=== PATIENT | female | born 1995 | race Caucasian/White ===

== ENCOUNTER 2020-09-17 18:57 | Emergency (ER) | payer BC ==
--- NOTE | 2020-09-17 20:10 | EDM.PDOC ---
ED HPI GENERAL MEDICAL PROBLEM - General Chief Complaint: Abdominal Pain Stated Complaint: ABDOMINAL PAIN Time Seen by Provider: 09/17/20 19:18 Source of Information: Reports: Patient, RN Notes Reviewed History Limitations: Reports: No Limitations - History of Present Illness INITIAL COMMENTS - FREE TEXT/NARRATIVE: Patient presents to the emergency department with complaints of generalized abdominal pain for the last 4 days. She states the symptoms initially began in her low abdomen, however at this time she is having pain and tenderness throughout. She states she has a history of "stomach problems ". When asked to elaborate, she states that certain foods make her constipated but that she normally does quite well if she avoids all foods. She has been having regular bowel movements. States last bowel movement was today, however it was quite painful for her to go. She denies any nausea, vomiting, diarrhea, fever, or chills. She has never had any abdominal surgeries. Abdominal Pain Score (Numeric/FACES): 8 - Related Data Allergies Allergy/AdvReac Type Severity Reaction Status Date / Time No Known Allergies Allergy Verified 09/17/20 19:15 Home Meds: Home Meds . [No Known Home Meds] 09/17/20 [History] Past Medical History - Past Health History Medical/Surgical History: Denies Medical/Surgical History - Infectious Disease History Infectious Disease History: Reports: Novel Coronavirus Social & Family History - Tobacco Use Tobacco Use Status *Q: Light Tobacco User Years of Tobacco use: 4 Packs/Tins Daily: 0.2 - Caffeine Use Caffeine Use: Reports: Coffee, Energy Drinks, Soda, Tea - Alcohol Use Days Per Week of Alcohol Use: 1 Number of Drinks Per Day: 1 Total Drinks Per Week: 1 - Recreational Drug Use Recreational Drug Use: No ED ROS GENERAL - Review of Systems Review Of Systems: See Below Constitutional: Reports: No Symptoms. Denies: Fever, Chills, Weakness HEENT: Reports: No Symptoms Respiratory: Reports: No Symptoms Cardiovascular: Reports: No Symptoms Endocrine: Reports: No Symptoms GI/Abdominal: Reports: Abdominal Pain (Mild generalized ), Diarrhea, Nausea, Vomiting : Reports: No Symptoms Musculoskeletal: Reports: No Symptoms Skin: Reports: No Symptoms Neurological: Reports: No Symptoms Psychiatric: Reports: No Symptoms Hematologic/Lymphatic: Reports: No Symptoms Immunologic: Reports: No Symptoms ED EXAM, GI/ABD - Physical Exam Exam: See Below General Appearance: Alert, WD/WN, No Apparent Distress Respiratory/Chest: No Respiratory Distress, Lungs Clear, Normal Breath Sounds, No Accessory Muscle Use, Chest Non-Tender Cardiovascular: Normal Peripheral Pulses, Regular Rate, Rhythm, No Edema, No Gallop, No JVD, No Murmur, No Rub GI/Abdominal Exam: Normal Bowel Sounds, Soft, No Organomegaly, No Distention, No Abnormal Bruit, No Mass, Pelvis Stable, Tender (Mild generalized tenderness throughout) Neurological: Alert, Oriented, CN II-XII Intact, Normal Cognition, Normal Gait, Normal Reflexes, No Motor/Sensory Deficits Psychiatric: Normal Affect, Normal Mood Skin Exam: Warm, Dry, Intact, Normal Color, No Rash Course - Vital Signs Last Recorded V/S: Last Vital Signs Temp 97.0 F 09/17/20 19:13 Pulse 76 09/17/20 19:13 Resp 15 09/17/20 19:13 BP 150/86 H 09/17/20 19:13 Pulse Ox 100 09/17/20 19:13 - Orders/Labs/Meds Orders: Active Orders 24 hr Category Date Time Status Abdomen 2V AP Flat Upright [CR] Stat Exams 09/17/20 19:24 Taken Meds: Medications Discontinued Medications Generic Name Dose Route Start Last Admin Trade Name Freq PRN Reason Stop Dose Admin Magnesium Citrate 296 ml 09/17/20 20:30 09/17/20 20:47 Citrate Of Magnesia PO 09/17/20 20:31 296 ml ONETIME ONE Administration - Re-Assessments/Exams Free Text/Narrative Re-Assessment/Exam: Patient is a 25-year-old female presenting to the emergency department with a 4- day history of generalized abdominal pain. States initially began in her lower abdomen it is currently throughout. On exam, she does have some mild tenderness throughout her entire abdomen. She is had no fever, chills, nausea, vomiting, or diarrhea. Given her history, I feel that it is likely that she is constipated. Have ordered abdomen flat and upright x-ray. 09/17/20 20:09 X-ray of the abdomen shows a significant amount of stool throughout the ascending, transverse, and descending colon's. Discussed these findings with the patient. We will send her home with a bottle of magnesium citrate. Discharge instructions as documented. Departure - Departure Time of Disposition: 20:49 Disposition: Home, Self-Care 01 Condition: Good Clinical Impression: Constipation Qualifiers: Constipation type: unspecified constipation type Qualified Code(s): K59.00 - Constipation, unspecified - Discharge Information Instructions: Constipation, Adult Referrals: PCP,None [Primary Care Provider] - Forms: ED Department Discharge Additional Instructions: You were seen in the emergency department today for generalized abdominal pain over the last 4 days. Abdominal x-rays were completed and do show increased stool throughout your colon which is likely the cause of your pain. You have been sent home with a bottle of magnesium citrate. Recommend that you drink the entire bottle upon return home. This should produce a number of bowel movements, some of which may be loose. Once you have cleaned out, I would recommend that you start taking a daily stool softener to help you stay regular. These may be purchased [id number]. Return to ER as needed. Sepsis Event Note (ED) - Evaluation Sepsis Screening Result: No Definite Risk - Focused Exam Vital Signs: Vital Signs Temp Pulse Resp BP Pulse Ox 09/17/20 19:13 97.0 F 76 15 150/86 H 100 - My Orders Last 24 Hours: My Active Orders 09/17/20 19:24 Abdomen 2V AP Flat Upright [CR] Stat - Assessment/Plan Last 24 Hours: My Active Orders 09/17/20 19:24 Abdomen 2V AP Flat Upright [CR] Stat
[2020-09-17] MEDS ORDERED: Magnesium Citrate Solution 296 ML Bottle PO ONE (20:30)
--- NOTE | 2020-09-20 08:39 | CR ---
PROCEDURE INFORMATION: Exam: XR Abdomen, 3 or More Views Exam date and time: 09/17/2020 7:45 PM Age: 25 years old Clinical indication: Abdominal pain; Patient HX: LLQ pain onset Sunday and worsening, denies n/v/d TECHNIQUE: Imaging protocol: XR of the abdomen. Views: 3 or more views. COMPARISON: No relevant prior studies available. FINDINGS: Gastrointestinal tract: Gas and stool are present in the colon. No dilated bowel loops. Intraperitoneal space: Normal. No free air. Bones/joints: Unremarkable for age. IMPRESSION: No acute findings. Thank you for allowing us to participate in the care of your patient. Dictated and Authenticated by: Martinez Lobo MD 09/17/2020 9:47 PM Central Time ([place] & [place]) [facility]
== END 2020-09-17 20:59 | disposition home or self-care (01) ==
LOC: JD.ED 18:57
DX: K59.00 Constipation, unspecified (principal); F17.210 Nicotine dependence, cigarettes, uncomplicated; Z86.19 Personal history of other infectious and parasitic diseases
CPT/HCPCS: 74019; 99284; A9270; 99283

== ENCOUNTER 2020-09-19 17:37 | Day surgery (SDC) | payer BC ==
[2020-09-19] MEDS ORDERED: Sodium Chloride 0.9% 10 ML Syringe FLUSH PRN (18:39)
--- NOTE | 2020-09-19 19:21 | EDM.PDOC ---
ED HPI GENERAL MEDICAL PROBLEM - General Chief Complaint: Abdominal Pain Stated Complaint: ABDOMINAL PAIN/CONSTIPATED Time Seen by Provider: 09/19/20 17:43 Source of Information: Reports: Patient, RN Notes Reviewed History Limitations: Reports: No Limitations - History of Present Illness INITIAL COMMENTS - FREE TEXT/NARRATIVE: Patient is a 25-year-old female presenting to the emergency department with complaints of abdominal discomfort and distention. She was seen in this emergency department 2 days ago and was found increase stool in her colon. She states she went home and drink the magnesium citrate. She did have a number of loose stools, however today she felt quite bloated and continued to have some generalized abdominal discomfort. She took another bottle of magnesium citrate and states that she has been having watery diarrhea since that time. She is passing gas as well. She denies any fever, nausea, or vomiting. She has a history of constipation. She has had no abdominal surgeries in the past. Abdominal Pain Score (Numeric/FACES): 8 - Related Data Allergies Allergy/AdvReac Type Severity Reaction Status Date / Time No Known Allergies Allergy Verified 09/19/20 17:46 Home Meds: Home Meds . [No Known Home Meds] 09/17/20 [History] Past Medical History - Past Health History Medical/Surgical History: Denies Medical/Surgical History - Infectious Disease History Infectious Disease History: Reports: Novel Coronavirus Social & Family History - Tobacco Use Tobacco Use Status *Q: Current Every Day Tobacco User Years of Tobacco use: 4 Packs/Tins Daily: 0.2 - Caffeine Use Caffeine Use: Reports: Coffee, Energy Drinks, Soda - Recreational Drug Use Recreational Drug Use: No ED ROS GENERAL - Review of Systems Review Of Systems: See Below Constitutional: Reports: No Symptoms. Denies: Fever, Chills HEENT: Reports: No Symptoms Respiratory: Reports: No Symptoms Cardiovascular: Reports: No Symptoms Endocrine: Reports: No Symptoms GI/Abdominal: Reports: Abdominal Pain (mild generalized throughout). Denies: Nausea, Vomiting : Reports: No Symptoms Musculoskeletal: Reports: No Symptoms Skin: Reports: No Symptoms Neurological: Reports: No Symptoms Psychiatric: Reports: No Symptoms Hematologic/Lymphatic: Reports: No Symptoms Immunologic: Reports: No Symptoms ED EXAM, GI/ABD - Physical Exam Exam: See Below General Appearance: Alert, WD/WN, No Apparent Distress Respiratory/Chest: No Respiratory Distress, Lungs Clear, Normal Breath Sounds, No Accessory Muscle Use, Chest Non-Tender Cardiovascular: Normal Peripheral Pulses, Regular Rate, Rhythm, No Edema, No Gallop, No JVD, No Murmur, No Rub GI/Abdominal Exam: Soft, No Organomegaly, No Distention, No Abnormal Bruit, No Mass, Pelvis Stable, Tender (generalized tenderness throughout), Other (hyperactive bowel sounds x 4). No: Guarding, Rigid, Rebound Neurological: Alert, Oriented, CN II-XII Intact, Normal Cognition, Normal Gait, Normal Reflexes, No Motor/Sensory Deficits Psychiatric: Normal Affect, Normal Mood Skin Exam: Warm, Dry, Intact, Normal Color, No Rash Lymphatic: No Adenopathy Course - Vital Signs Last Recorded V/S: Last Vital Signs Temp 98.8 F 09/20/20 07:48 Pulse 84 09/20/20 07:48 Resp 16 09/20/20 07:48 BP 114/58 L 09/20/20 07:48 Pulse Ox 100 09/20/20 07:48 - Orders/Labs/Meds Orders: Active Orders 24 hr Category Date Time Status Admission Status [Patient Status] [ADT] Routine ADT 09/19/20 22:46 Active Ambulate [RC] PER UNIT ROUTINE Care 09/20/20 01:50 Active Antiembolic Devices [RC] PER UNIT ROUTINE Care 09/19/20 23:26 Active Communication Order [RC] ASDIRECTED Care 09/20/20 00:12 Active Communication Order [RC] ASDIRECTED Care 09/20/20 01:50 Active Oxygen Therapy [RC] ASDIRECTED Care 09/20/20 00:12 Active Peripheral IV Care [RC] Q2HR Care 09/19/20 18:39 Active Pulse Oximetry [RC] ASDIRECTED Care 09/20/20 00:12 Active Vital Signs [RC] Q4HR Care 09/20/20 00:12 Active Nothing Per Oral Diet [DIET] Diet 09/19/20 Dinner Active Regular Diet [DIET] Diet 09/20/20 Breakfast Active Acetaminophen [TylenoL] Med 09/20/20 01:50 Active 650 mg PO Q6H PRN Acetaminophen/oxyCODONE [Percocet 325-5 MG] Med 09/20/20 01:50 Active 1 tab PO Q6H PRN Acetaminophen/oxyCODONE [Percocet 325-5 MG] Med 09/20/20 01:50 Active 2 tab PO Q6H PRN HYDROmorphone [Dilaudid] Med 09/20/20 00:12 Active 0.5 mg IVPUSH Q10M PRN Ibuprofen [Motrin] Med 09/20/20 01:50 Active 600 mg PO Q6H PRN Ondansetron [Zofran] Med 09/20/20 00:12 Active 4 mg IVPUSH ONETIME PRN Ondansetron [Zofran] Med 09/20/20 08:04 Active 4 mg IVPUSH Q4H PRN Sodium Chloride 0.9% [Normal Saline] 100 ml Med 09/19/20 21:30 Active IV ASDIRECTED Sodium Chloride 0.9% [Saline Flush] Med 09/19/20 18:39 Active 10 ml FLUSH ASDIRECTED PRN fentaNYL [Sublimaze] Med 09/20/20 00:12 Active 50 mcg IVPUSH Q5M PRN Peripheral IV Insertion Adult [OM.PC] Stat Oth 09/19/20 18:39 Ordered Schedule Procedure [COMM] Stat Oth 09/19/20 22:46 Ordered Sequential Compression Device [OM.PC] Per Unit Routine Oth 09/19/20 23:24 Ordered Medication Orders Acetaminophen (Tylenol) 650 mg PO Q6H PRN PRN Reason: Pain Fentanyl (Sublimaze) 50 mcg IVPUSH Q5M PRN PRN Reason: Pain Hydromorphone HCl (Dilaudid) 0.5 mg IVPUSH Q10M PRN PRN Reason: Pain (severe 7-10) Sodium Chloride (Normal Saline) 100 mls @ 60 mls/hr IV ASDIRECTED AURELIA Last Admin: 09/19/20 21:25 Dose: 60 mls/hr Documented by: [email or web address] Ibuprofen (Motrin) 600 mg PO Q6H PRN PRN Reason: Pain Last Admin: 09/20/20 06:50 Dose: 600 mg Documented by: [email or web address] Ondansetron HCl (Zofran) 4 mg IVPUSH ONETIME PRN PRN Reason: Nausea/Vomiting Ondansetron HCl (Zofran) 4 mg IVPUSH Q4H PRN PRN Reason: NAUSEA Oxycodone/Acetaminophen (Percocet 325-5 Mg) 1 tab PO Q6H PRN PRN Reason: Abdominal Pain Last Admin: 09/20/20 02:08 Dose: 1 tab Documented by: [email or web address] Oxycodone/Acetaminophen (Percocet 325-5 Mg) 2 tab PO Q6H PRN PRN Reason: Pain (severe 7-10) Sodium Chloride (Saline Flush) 10 ml FLUSH ASDIRECTED PRN PRN Reason: Keep Vein Open Last Admin: 09/19/20 21:05 Dose: 10 ml Documented by: BETH Labs: Laboratory Tests 09/19/20 09/19/20 09/19/20 Range/Units 19:55 19:55 19:55 WBC 4.99 (3.98-10.04) K/mm3 RBC 3.57 L (3.98-5.22) M/mm3 Hgb 10.7 L (11.2-15.7) gm/dl Hct 33.6 L (34.1-44.9) % MCV 94.1 (79.4-94.8) fl MCH 30.0 (25.6-32.2) pg MCHC 31.8 L (32.2-35.5) g/dl RDW Std Deviation 42.7 (36.4-46.3) fL Plt Count 225 (182-369) K/mm3 MPV 10.7 (9.4-12.3) fl Neut % (Auto) 61.3 (34.0-71.1) % Lymph % (Auto) 26.9 (19.3-51.7) % [place]urry % (Auto) 10.4 (4.7-12.5) % Eos % (Auto) 1.0 (0.7-5.8) Baso % (Auto) 0.2 (0.1-1.2) % Neut # (Auto) 3.06 (1.56-6.13) K/mm3 Lymph # (Auto) 1.34 (1.18-3.74) K/mm3 [place] # (Auto) 0.52 H (0.24-0.36) K/mm3 Eos # (Auto) 0.05 (0.04-0.36) K/mm3 Baso # (Auto) 0.01 (0.01-0.08) K/mm3 Sodium 138 (136-145) mEq/L Potassium 3.8 (3.5-5.1) mEq/L Chloride 101 (98-107) mEq/L Carbon Dioxide 29 (21-32) mEq/L Anion Gap 11.8 (5-15) BUN 7 (7-18) mg/dL Creatinine 1.0 (0.55-1.02) mg/dL Est Cr Clr Drug Dosing 75.55 mL/min Estimated GFR (MDRD) > 60 (>60) mL/min BUN/Creatinine Ratio 7.0 L (14-18) Glucose 83 (74-106) mg/dL Calcium 9.0 (8.5-10.1) mg/dL Total Bilirubin 0.7 (0.2-1.0) mg/dL AST 18 (15-37) U/L ALT 20 (14-59) U/L Alkaline Phosphatase 55 (46-116) U/L C-Reactive Protein 1.3 H* (<1.0) mg/dL Total Protein 6.7 (6.4-8.2) g/dl Albumin 3.7 (3.4-5.0) g/dl Globulin 3.0 gm/dL Albumin/Globulin Ratio 1.2 (1-2) Lipase 105 (73-393) U/L HCG, Qual Positive H (NEGATIVE) HCG, Quant mIU/mL SARS-CoV-2 RNA (ANAHI) (NEGATIVE) SARS CoV-2 RNA Rapid ANAHI (NEGATIVE) Blood Type Gel Antibody Screen 09/19/20 09/19/20 09/19/20 Range/Units 19:55 19:55 22:40 WBC (3.98-10.04) K/mm3 RBC (3.98-5.22) M/mm3 Hgb (11.2-15.7) gm/dl Hct (34.1-44.9) % MCV (79.4-94.8) fl MCH (25.6-32.2) pg MCHC (32.2-35.5) g/dl RDW Std Deviation (36.4-46.3) fL Plt Count (182-369) K/mm3 MPV (9.4-12.3) fl Neut % (Auto) (34.0-71.1) % Lymph % (Auto) (19.3-51.7) % [place]urry % (Auto) (4.7-12.5) % Eos % (Auto) (0.7-5.8) Baso % (Auto) (0.1-1.2) % Neut # (Auto) (1.56-6.13) K/mm3 Lymph # (Auto) (1.18-3.74) K/mm3 [place] # (Auto) (0.24-0.36) K/mm3 Eos # (Auto) (0.04-0.36) K/mm3 Baso # (Auto) (0.01-0.08) K/mm3 Sodium (136-145) mEq/L Potassium (3.5-5.1) mEq/L Chloride (98-107) mEq/L Carbon Dioxide (21-32) mEq/L Anion Gap (5-15) BUN (7-18) mg/dL Creatinine (0.55-1.02) mg/dL Est Cr Clr Drug Dosing mL/min Estimated GFR (MDRD) (>60) mL/min BUN/Creatinine Ratio (14-18) Glucose (74-106) mg/dL Calcium (8.5-10.1) mg/dL Total Bilirubin (0.2-1.0) mg/dL AST (15-37) U/L ALT (14-59) U/L Alkaline Phosphatase (46-116) U/L C-Reactive Protein (<1.0) mg/dL Total Protein (6.4-8.2) g/dl Albumin (3.4-5.0) g/dl Globulin gm/dL Albumin/Globulin Ratio (1-2) Lipase (73-393) U/L HCG, Qual (NEGATIVE) HCG, Quant 829.0 mIU/mL SARS-CoV-2 RNA (ANHAI) Negative (NEGATIVE) SARS CoV-2 RNA Rapid ANAHI (NEGATIVE) Blood Type B POSITIVE Gel Antibody Screen Negative 09/19/20 09/19/20 09/20/20 Range/Units 22:48 23:15 07:27 WBC 5.60 (3.98-10.04) K/mm3 RBC 3.49 L (3.98-5.22) M/mm3 Hgb 10.4 L (11.2-15.7) gm/dl Hct 32.9 L (34.1-44.9) % MCV 94.3 (79.4-94.8) fl MCH 29.8 (25.6-32.2) pg MCHC 31.6 L (32.2-35.5) g/dl RDW Std Deviation 43.0 (36.4-46.3) fL Plt Count 233 (182-369) K/mm3 MPV 10.4 (9.4-12.3) fl Neut % (Auto) 48.3 (34.0-71.1) % Lymph % (Auto) 38.6 (19.3-51.7) % [place] % (Auto) 11.1 (4.7-12.5) % Eos % (Auto) 1.4 (0.7-5.8) Baso % (Auto) 0.4 (0.1-1.2) % Neut # (Auto) 2.71 (1.56-6.13) K/mm3 Lymph # (Auto) 2.16 (1.18-3.74) K/mm3 [place]urry # (Auto) 0.62 H (0.24-0.36) K/mm3 Eos # (Auto) 0.08 (0.04-0.36) K/mm3 Baso # (Auto) 0.02 (0.01-0.08) K/mm3 Sodium (136-145) mEq/L Potassium (3.5-5.1) mEq/L Chloride (98-107) mEq/L Carbon Dioxide (21-32) mEq/L Anion Gap (5-15) BUN (7-18) mg/dL Creatinine (0.55-1.02) mg/dL Est Cr Clr Drug Dosing mL/min Estimated GFR (MDRD) (>60) mL/min BUN/Creatinine Ratio (14-18) Glucose (74-106) mg/dL Calcium (8.5-10.1) mg/dL Total Bilirubin (0.2-1.0) mg/dL AST (15-37) U/L ALT (14-59) U/L Alkaline Phosphatase (46-116) U/L C-Reactive Protein (<1.0) mg/dL Total Protein (6.4-8.2) g/dl Albumin (3.4-5.0) g/dl Globulin gm/dL Albumin/Globulin Ratio (1-2) Lipase (73-393) U/L HCG, Qual (NEGATIVE) HCG, Quant 656.0 mIU/mL SARS-CoV-2 RNA (ANAHI) (NEGATIVE) SARS CoV-2 RNA Rapid ANAHI Negative (NEGATIVE) Blood Type Gel Antibody Screen 09/20/20 Range/Units 07:27 WBC 7.69 (3.98-10.04) K/mm3 RBC 3.59 L (3.98-5.22) M/mm3 Hgb 10.8 L (11.2-15.7) gm/dl Hct 34.0 L (34.1-44.9) % MCV 94.7 (79.4-94.8) fl MCH 30.1 (25.6-32.2) pg MCHC 31.8 L (32.2-35.5) g/dl RDW Std Deviation 43.5 (36.4-46.3) fL Plt Count 224 (182-369) K/mm3 MPV 10.9 (9.4-12.3) fl Neut % (Auto) 90.3 H (34.0-71.1) % Lymph % (Auto) 8.2 L (19.3-51.7) % Scurry % (Auto) 1.2 L (4.7-12.5) % Eos % (Auto) 0 L (0.7-5.8) Baso % (Auto) 0.0 L (0.1-1.2) % Neut # (Auto) 6.95 H (1.56-6.13) K/mm3 Lymph # (Auto) 0.63 L (1.18-3.74) K/mm3 Scurry # (Auto) 0.09 L (0.24-0.36) K/mm3 Eos # (Auto) 0.00 L (0.04-0.36) K/mm3 Baso # (Auto) 0.00 L (0.01-0.08) K/mm3 Sodium (136-145) mEq/L Potassium (3.5-5.1) mEq/L Chloride (98-107) mEq/L Carbon Dioxide (21-32) mEq/L Anion Gap (5-15) BUN (7-18) mg/dL Creatinine (0.55-1.02) mg/dL Est Cr Clr Drug Dosing mL/min Estimated GFR (MDRD) (>60) mL/min BUN/Creatinine Ratio (14-18) Glucose (74-106) mg/dL Calcium (8.5-10.1) mg/dL Total Bilirubin (0.2-1.0) mg/dL AST (15-37) U/L ALT (14-59) U/L Alkaline Phosphatase (46-116) U/L C-Reactive Protein (<1.0) mg/dL Total Protein (6.4-8.2) g/dl Albumin (3.4-5.0) g/dl Globulin gm/dL Albumin/Globulin Ratio (1-2) Lipase (73-393) U/L HCG, Qual (NEGATIVE) HCG, Quant mIU/mL SARS-CoV-2 RNA (ANAHI) (NEGATIVE) SARS CoV-2 RNA Rapid ANAHI (NEGATIVE) Blood Type Gel Antibody Screen Meds: Medications Generic Name Dose Route Start Last Admin Trade Name Freq PRN Reason Stop Dose Admin Acetaminophen 650 mg 09/20/20 01:50 Tylenol PO Q6H PRN Pain Fentanyl 50 mcg 09/20/20 00:12 Sublimaze IVPUSH Q5M PRN Pain Hydromorphone HCl 0.5 mg 09/20/20 00:12 Dilaudid IVPUSH Q10M PRN Pain (severe 7-10) Sodium Chloride 100 mls @ 60 mls/hr 09/19/20 21:30 09/19/20 21:25 Normal Saline IV 60 mls/hr ASDIRECTED AURELIA Administration Ibuprofen 600 mg 09/20/20 01:50 09/20/20 06:50 Motrin PO 600 mg Q6H PRN Administration Pain Ondansetron HCl 4 mg 09/20/20 00:12 Zofran IVPUSH ONETIME PRN Nausea/Vomiting Ondansetron HCl 4 mg 09/20/20 08:04 Zofran IVPUSH Q4H PRN NAUSEA Oxycodone/Acetaminophen 1 tab 09/20/20 01:50 09/20/20 02:08 Percocet 325-5 Mg PO 1 tab Q6H PRN Administration Abdominal Pain Oxycodone/Acetaminophen 2 tab 09/20/20 01:50 Percocet 325-5 Mg PO Q6H PRN Pain (severe 7-10) Sodium Chloride 10 ml 09/19/20 18:39 09/19/20 21:05 Saline Flush FLUSH 10 ml ASDIRECTED PRN Administration Keep Vein Open Discontinued Medications Generic Name Dose Route Start Last Admin Trade Name [place] PRN Reason Stop Dose Admin Bupivacaine HCl Confirm 09/19/20 23:17 09/19/20 23:59 Marcaine 0.5% Administered 09/19/20 23:18 6 ml Dose Administration 30 ml .ROUTE .STK-MED ONE Cefazolin Sodium Confirm 09/19/20 23:04 Ancef Administered 09/19/20 23:05 Dose 2 gm .ROUTE .STK-MED ONE Citric Acid/Sodium Citrate 30 ml 09/19/20 23:23 09/19/20 23:32 Bicitra Solution PO 09/19/20 23:24 30 ml ONETIME ONE Administration Citric Acid/Sodium Citrate Confirm 09/19/20 23:30 09/20/20 02:11 Bicitra Solution Administered 09/19/20 23:31 Not Given Dose 30 ml .ROUTE .STK-MED ONE Dexamethasone Confirm 09/19/20 23:05 Dexamethasone Administered 09/19/20 23:06 Dose 20 mg .ROUTE .STK-MED ONE Fentanyl Confirm 09/19/20 23:04 Sublimaze Administered 09/19/20 23:05 Dose 250 mcg .ROUTE .STK-MED ONE Glycopyrrolate Confirm 09/20/20 00:09 Robinul Administered 09/20/20 00:10 Dose 0.4 mg .ROUTE .STK-MED ONE Lactated Ringer's 1,000 mls @ 999 mls/hr 09/19/20 22:59 09/19/20 23:08 Ringers, Lactated IV 09/19/20 23:59 999 mls/hr .BOLUS ONE Administration Lidocaine HCl Confirm 09/19/20 23:04 Xylocaine-Mpf 1% Administered 09/19/20 23:05 Dose 4 mls @ as directed .ROUTE .STK-MED ONE Lactated Ringer's Confirm 09/19/20 23:04 Ringers, Lactated Administered 09/19/20 23:05 Dose 1,000 mls @ as directed .ROUTE .STK-MED ONE Lidocaine HCl Confirm 09/19/20 23:04 Xylocaine-Mpf 1% Administered 09/19/20 23:05 Dose 4 mls @ as directed .ROUTE .STK-MED ONE Ondansetron HCl 4 mg/ Sodium 52 mls @ 100 mls/hr 09/20/20 01:50 Chloride IV Q4H PRN Nausea Iopamidol 100 ml 09/19/20 21:21 09/19/20 21:25 Isovue-300 (61%) IVPUSH 09/19/20 21:22 100 ml ONETIME ONE Administration Iopamidol 50 ml 09/19/20 21:21 09/19/20 21:25 Isovue-300 (61%) IVPUSH 09/19/20 21:22 50 ml ONETIME ONE Administration Ketorolac Tromethamine Confirm 09/20/20 00:09 Toradol Administered 09/20/20 00:10 Dose 15 mg .ROUTE .STK-MED ONE Midazolam HCl Confirm 09/19/20 23:04 Versed 1 Mg/Ml Administered 09/19/20 23:05 Dose 2 mg .ROUTE .STK-MED ONE Neostigmine Methylsulfate Confirm 09/20/20 00:09 Neostigmine Methylsulfate Administered 09/20/20 00:10 Dose 5 mg .ROUTE .STK-MED ONE Ondansetron HCl Confirm 09/19/20 23:04 Zofran Administered 09/19/20 23:05 Dose 4 mg .ROUTE .STK-MED ONE Ondansetron HCl Confirm 09/19/20 23:05 Zofran Administered 09/19/20 23:06 Dose 4 mg .ROUTE .STK-MED ONE Propofol Confirm 09/19/20 23:04 Diprivan 20 Ml Administered 09/19/20 23:05 Dose 400 mg .ROUTE .STK-MED ONE Rocuronium [place] Confirm 09/19/20 23:04 Zemuron Administered 09/19/20 23:05 Dose 50 mg .ROUTE .STK-MED ONE - Re-Assessments/Exams Free Text/Narrative Re-Assessment/Exam: Patient is a 25-year-old female presenting to the emergency department with complaints of watery stools and abdominal bloating with discomfort. She was seen here 2 days ago and found to have increased stool in her colon. She states she went home and drink the magnesium citrate. She did have some loose stools after this. Today she was feeling distended, therefore she took another bottle of magnesium citrate. She states that she has been having frequent very watery stools. She is also passing gas. She denies any nausea or vomiting. Has had no fevers. I have ordered an abdomen flat and upright x-ray. 09/19/20 1840 X-ray flat and upright shows scattered minimal distended loops of bowel with multiple air-fluid levels. Findings are nonspecific but could relate to an underlying gastroenteritis/ileus. Possibility of early or developing bowel obstruction cannot be excluded. I have ordered blood work and a CT scan of the abdomen pelvis with IV and oral contrast. Pt denies possibility of as she just finished her period on September 07. 09/19/20 22:06 CT scan of the abdomen pelvis shows a moderate amount of high density intraperitoneal fluid suggesting hemoperitoneum. Moderate to large amount of heterogeneous high density pelvic fluid also likely representing complexity/blood products. Etiology uncertain although possible etiology would include ruptured hemorrhagic ovarian cyst. Recommend clinical correlation and pelvic ultrasound to better assess the ovaries/pelvic organs. Correlate with beta hCG values to exclude any possibility of underlying ectopic . No evidence of bowel obstruction. Patient verbalizes that she finished a full period SundaySeptember 07. The discomfort began about 5 days ago. She states that her pain was briefly more in her bilateral lower abdomen, but that it has been generalized abdominal tenderness since. She states that at the onset of symptoms, she did have some light vaginal spotting which she thought was her starting her period again. This was very brief and then stopped. I have ordered a serum hCG as well as a transvaginal non-OB ultrasound. Once these results are available, I will consult with the PUBLIC SAFETY OFFICER on-call. 09/19/20 22:27 Patient serum hCG is positive, raising concern for possible ruptured ectopic . Patient is currently over at ultrasound. Once these results are available, I will visit with the PUBLIC SAFETY OFFICER on-call. 09/19/20 22:48 Visited with the industrial service technician. She noted that there was a large amount of blood within the pelvis. She states there were large cysts in each ovary, therefore she was not able to see which side the blood was coming from. Called and spoke with the PUBLIC SAFETY OFFICER on-call, Dr. Mcconnell. He requested a quantitative hCG be added. I had already ordered a type and screen. He said he will be here in 10 minutes and asked to call in the OR crew. Departure - Departure Time of Disposition: 22:50 Disposition: DC/Tfer to [facility] Condition: Good Clinical Impression: Hemoperitoneum - Discharge Information Sepsis Event Note (ED) - Evaluation Sepsis Screening Result: No Definite Risk - Focused Exam Vital Signs: Vital Signs Temp Temp Pulse Pulse Resp BP BP 09/20/20 07:48 98.8 F 84 16 114/58 L 09/20/20 04:10 98.2 F 88 15 118/58 L 09/20/20 04:00 98.2 F 72 14 118/58 L 09/20/20 02:56 98.2 F 69 14 115/65 09/20/20 02:15 64 15 119/63 09/20/20 01:45 98.4 F 59 L 14 121/58 L 09/20/20 01:40 09/20/20 01:30 98.1 F 59 L 18 111/64 09/20/20 01:15 97.9 F 62 16 112/63 09/20/20 01:11 09/20/20 01:02 09/20/20 01:00 97.9 F 62 12 118/59 L 09/20/20 00:50 97.9 F 68 12 118/69 09/20/20 00:44 97.9 F 74 18 109/62 Pulse Ox Pulse Ox 09/20/20 07:48 100 09/20/20 04:10 97 09/20/20 04:00 96 09/20/20 02:56 98 09/20/20 02:15 98 09/20/20 01:45 98 09/20/20 01:40 98 09/20/20 01:30 95 09/20/20 01:15 97 09/20/20 01:11 100 09/20/20 01:02 100 09/20/20 01:00 100 09/20/20 00:50 100 09/20/20 00:44 100 100 - My Orders Last 24 Hours: My Active Orders 09/19/20 18:39 Peripheral IV Care [RC] Q2HR Sodium Chloride 0.9% [Saline Flush] 10 ml FLUSH ASDIRECTED PRN Peripheral IV Insertion Adult [OM.PC] Stat 09/19/20 21:30 Sodium Chloride 0.9% [Normal Saline] 100 ml IV ASDIRECTED 09/19/20 22:46 Admission Status [Patient Status] [ADT] Routine Schedule Procedure [COMM] Stat - Assessment/Plan Last 24 Hours: My Active Orders 09/19/20 18:39 Peripheral IV Care [RC] Q2HR Sodium Chloride 0.9% [Saline Flush] 10 ml FLUSH ASDIRECTED PRN Peripheral IV Insertion Adult [OM.PC] Stat 09/19/20 21:30 Sodium Chloride 0.9% [Normal Saline] 100 ml IV ASDIRECTED 09/19/20 22:46 Admission Status [Patient Status] [ADT] Routine Schedule Procedure [COMM] Stat
[2020-09-19] MEDS ORDERED: Iopamidol 612 MG/ML 100 ML Bottle IVPUSH ONE (21:21)
[2020-09-19] MEDS ORDERED: Iopamidol 612 MG/ML 50 ML SDV IVPUSH ONE (21:21)
[2020-09-19] MEDS ORDERED: Sodium Chloride 0.9% 100 ML IV SCH (21:30)
[2020-09-19] MEDS ORDERED: Lactated Ringers 1,000 ML IV ONE (22:59)
[2020-09-19] MEDS ORDERED: Lidocaine 1% 4 ML ONE ×2 (23:04)
[2020-09-19] MEDS ORDERED: ceFAZolin 1 GM Vial ONE (23:04)
[2020-09-19] MEDS ORDERED: Rocuronium 50 MG/5 ML Vial ONE (23:04)
[2020-09-19] MEDS ORDERED: Ondansetron 4 MG/2 ML SDV ONE ×2 (23:04→23:05)
[2020-09-19] MEDS ORDERED: Lactated Ringers 1,000 ML ONE (23:04)
[2020-09-19] MEDS ORDERED: fentaNYL 250 MCG/5 ML SDV ONE (23:04)
[2020-09-19] MEDS ORDERED: Midazolam 1 MG/ML 2 ML SDV ONE (23:04)
[2020-09-19] MEDS ORDERED: Propofol 200 MG/20 ML SDV ONE (23:04)
[2020-09-19] MEDS ORDERED: Dexamethasone 4 MG/ML 5 ML MDV ONE (23:05)
[2020-09-19] MEDS ORDERED: Bupivacaine 0.5% 30 ML SDV ONE (23:17)
--- NOTE | 2020-09-19 23:17 | PCM.LDHP ---
L&D History of Present Illness - General Date of Service: 09/19/20 Admit Problem/Dx: Patient Status Order with Admit Dx/Problem 09/19/20 22:46 Admission Status [Patient Status] [ADT] Routine Admission Diagnosis/Problem Admission Diagnosis/Problem Ectopic Source of Information: Patient History Limitations: Reports: No Limitations - History of Present Illness Introduction:: 25-year-old -0-0-0 LMP first day 09/02/2020. Patient seen in the emergency room at [facility] in [place] on 09/17/2020 for abdominal pain thought to be constipation. Patient returned to the emergency room on 09/19/2020 and test was obtained positive quantitative value is pending. Type and Rh pending. Hemoglobin/hematocrit 10.7 33.6. Patient started with abdominal pain on 09/14/2020 generalized but somewhat located in the lower midline. Patient's pain persisted for the past day since then still not able to localize to the left or right side. test is positive the scan obtained on 09/19/2020 revealing impression: #1. There is a moderate amount of high density intraperitoneal fluid suggesting hemoperitoneum. Moderate to large amount of heterogenous high density pelvic fluid also likely representing complexity/blood products. Etiology uncertain although possible etiologies would include ruptured hemorrhagic ovarian cyst. Recommend clinical correlation and pelvic ultrasound for better assess one of the ovaries and pelvic organs. Light with beta-hCG values to exclude any possible underlying ectopic . No evidence of bowel obstruction. Ultrasound obtained on 09/19/2020 revealed impression hemorrhagic cyst right ovary. Simple cyst left ovary. No intrauterine gestation. Probable hemoperitoneum. Ectopic gestation requires exclusion. Will plan laparoscopy possible laparotomy possible removal of a tube and ovary. Was obtained with possible complications including bleeding, infection, allergic reaction, bowel, bladder, ureteral damage. Additional surgery. Did have spotting and bleeding after the abdominal pain started on 09/14/2020. Has not been on contraception. Patient has no history of significant abnormalities or problems on no chronic medications. Quality: Reports: Ache, Dull, Pressure, Throbbing Severity: Moderate Pain Score: 8 Improves with: Reports: None Worsens with: Reports: None Associated Symptoms: Reports: N - Related Data Allergies/Adverse Reactions: Allergies Allergy/AdvReac Type Severity Reaction Status Date / Time No Known Allergies Allergy Verified 09/19/20 17:46 Home Medications: Home Meds . [No Known Home Meds] 09/17/20 [History] Past Medical History - Past Health History Medical/Surgical History: Denies Medical/Surgical History - Infectious Disease History Infectious Disease History: Reports: Novel Coronavirus Social & Family History - Tobacco Use Tobacco Use Status *Q: Current Every Day Tobacco User Years of Tobacco use: 4 Packs/Tins Daily: 0.2 - Caffeine Use Caffeine Use: Reports: Coffee, Energy Drinks, Soda - Recreational Drug Use Recreational Drug Use: No H&P Review of Systems - Review of Systems: Review Of Systems: See Below General: Reports: No Symptoms HEENT: Reports: No Symptoms Pulmonary: Reports: No Symptoms Cardiovascular: Reports: No Symptoms Gastrointestinal: Reports: No Symptoms Genitourinary: Reports: No Symptoms Musculoskeletal: Reports: No Symptoms Skin: Reports: No Symptoms Psychiatric: Reports: No Symptoms Neurological: Reports: No Symptoms Hematologic/Lymphatic: Reports: No Symptoms Immunologic: Reports: No Symptoms L&D Exam - Exam Exam: See Below - Vital Signs Vital Signs: Last Vital Signs Temp 97.4 F 09/19/20 17:44 Pulse 92 09/19/20 17:44 Resp 18 09/19/20 17:44 BP 141/71 H 09/19/20 17:44 Pulse Ox 100 09/19/20 17:44 Weight: 170 lb - Exam General: Alert, Oriented HEENT: Conjunctiva Clear, Mucosa Moist & [place], Pupils Equal Neck: Supple, Trachea Midline Lungs: Clear to Auscultation, Normal Respiratory Effort Cardiovascular: Regular Rate, Regular Rhythm GI/Abdominal Exam: Normal Bowel Sounds, Guarding, Tender Genitourinary: Normal external exam Extremities: Normal Inspection, Non-Tender, No Pedal Edema, Normal Capillary Refill Skin: Warm, Dry, Intact Psychiatric: Alert, Normal Affect, Normal Mood - Patient Data Lab Results Last 24 hrs: Laboratory Results - last 24 hr 09/19/20 09/19/20 09/19/20 Range/Units 19:55 19:55 19:55 WBC 4.99 (3.98-10.04) K/mm3 RBC 3.57 L (3.98-5.22) M/mm3 Hgb 10.7 L (11.2-15.7) gm/dl Hct 33.6 L (34.1-44.9) % MCV 94.1 (79.4-94.8) fl MCH 30.0 (25.6-32.2) pg MCHC 31.8 L (32.2-35.5) g/dl RDW Std Deviation 42.7 (36.4-46.3) fL Plt Count 225 (182-369) K/mm3 MPV 10.7 (9.4-12.3) fl Neut % (Auto) 61.3 (34.0-71.1) % Lymph % (Auto) 26.9 (19.3-51.7) % [place] % (Auto) 10.4 (4.7-12.5) % Eos % (Auto) 1.0 (0.7-5.8) Baso % (Auto) 0.2 (0.1-1.2) % Neut # (Auto) 3.06 (1.56-6.13) K/mm3 Lymph # (Auto) 1.34 (1.18-3.74) K/mm3 [place] # (Auto) 0.52 H (0.24-0.36) K/mm3 Eos # (Auto) 0.05 (0.04-0.36) K/mm3 Baso # (Auto) 0.01 (0.01-0.08) K/mm3 Sodium 138 (136-145) mEq/L Potassium 3.8 (3.5-5.1) mEq/L Chloride 101 (98-107) mEq/L Carbon Dioxide 29 (21-32) mEq/L Anion Gap 11.8 (5-15) BUN 7 (7-18) mg/dL Creatinine 1.0 (0.55-1.02) mg/dL Est Cr Clr Drug Dosing 75.55 mL/min Estimated GFR (MDRD) > 60 (>60) mL/min BUN/Creatinine Ratio 7.0 L (14-18) Glucose 83 (74-106) mg/dL Calcium 9.0 (8.5-10.1) mg/dL Total Bilirubin 0.7 (0.2-1.0) mg/dL AST 18 (15-37) U/L ALT 20 (14-59) U/L Alkaline Phosphatase 55 (46-116) U/L C-Reactive Protein 1.3 H* (<1.0) mg/dL Total Protein 6.7 (6.4-8.2) g/dl Albumin 3.7 (3.4-5.0) g/dl Globulin 3.0 gm/dL Albumin/Globulin Ratio 1.2 (1-2) Lipase 105 (73-393) U/L HCG, Qual Positive H (NEGATIVE) HCG, Quant mIU/mL 09/19/20 Range/Units 19:55 WBC (3.98-10.04) K/mm3 RBC (3.98-5.22) M/mm3 Hgb (11.2-15.7) gm/dl Hct (34.1-44.9) % MCV (79.4-94.8) fl MCH (25.6-32.2) pg MCHC (32.2-35.5) g/dl RDW Std Deviation (36.4-46.3) fL Plt Count (182-369) K/mm3 MPV (9.4-12.3) fl Neut % (Auto) (34.0-71.1) % Lymph % (Auto) (19.3-51.7) % [place] % (Auto) (4.7-12.5) % Eos % (Auto) (0.7-5.8) Baso % (Auto) (0.1-1.2) % Neut # (Auto) (1.56-6.13) K/mm3 Lymph # (Auto) (1.18-3.74) K/mm3 [place] # (Auto) (0.24-0.36) K/mm3 Eos # (Auto) (0.04-0.36) K/mm3 Baso # (Auto) (0.01-0.08) K/mm3 Sodium (136-145) mEq/L Potassium (3.5-5.1) mEq/L Chloride (98-107) mEq/L Carbon Dioxide (21-32) mEq/L Anion Gap (5-15) BUN (7-18) mg/dL Creatinine (0.55-1.02) mg/dL Est Cr Clr Drug Dosing mL/min Estimated GFR (MDRD) (>60) mL/min BUN/Creatinine Ratio (14-18) Glucose (74-106) mg/dL Calcium (8.5-10.1) mg/dL Total Bilirubin (0.2-1.0) mg/dL AST (15-37) U/L ALT (14-59) U/L Alkaline Phosphatase (46-116) U/L C-Reactive Protein (<1.0) mg/dL Total Protein (6.4-8.2) g/dl Albumin (3.4-5.0) g/dl Globulin gm/dL Albumin/Globulin Ratio (1-2) Lipase (73-393) U/L HCG, Qual (NEGATIVE) HCG, Quant 829.0 mIU/mL Result Diagrams: 09/19/20 19:55 09/19/20 19:55 - Problem List (1) Pelvic pain with positive beta-human chorionic gonadotropin (BhCG) in female SNOMED Code(s): 962421251 ICD Code: Z33.1 - STATE, INCIDENTAL; R10.2 - PELVIC AND PERINEAL PAIN Status: Acute Current Visit: Yes (2) Abdominal pain in female SNOMED Code(s): 57012670, 998127081 ICD Code: R10.9 - UNSPECIFIED ABDOMINAL PAIN Status: Acute Current Visit: Yes (3) Hemoperitoneum SNOMED Code(s): 733086976 ICD Code: K66.1 - HEMOPERITONEUM Status: Acute Current Visit: Yes Problem List Initiated/Reviewed/Updated: No Orders Last 24hrs: Active Orders 24 hr Category Date Time Status Admission Status [Patient Status] [ADT] Routine ADT 09/19/20 22:46 Active Peripheral IV Care [RC] . DIRECTED Care 09/19/20 18:39 Active Abdomen 2V AP Flat Upright [CR] Stat Exams 09/19/20 17:45 Taken Abdomen Pelvis w Cont [CT] Stat Exams 09/19/20 18:38 Taken OB Transvaginal [US] Stat Exams 09/19/20 22:01 Taken CBC WITH AUTO DIFF [HEME] Stat Lab 09/19/20 22:59 Ordered CORONAVIRUS COVID-19 RAPID [MOLEC] Routine Lab 09/19/20 22:48 Received TYPE AND SCREEN [BBK] Stat Lab 09/19/20 19:55 Received Lactated Ringers [Ringers, Lactated] 1,000 ml Med 09/19/20 22:59 Active IV .BOLUS Sodium Chloride 0.9% [Normal Saline] 100 ml Med 09/19/20 21:30 Active IV ASDIRECTED Sodium Chloride 0.9% [Saline Flush] Med 09/19/20 18:39 Active 10 ml FLUSH ASDIRECTED PRN Peripheral IV Insertion Adult [OM.PC] Stat Oth 09/19/20 18:39 Ordered Schedule Procedure [COMM] Stat Ot 09/19/20 22:46 Ordered Medication Orders Sodium Chloride (Normal Saline) 100 mls @ 60 mls/hr IV ASDIRECTED AURELIA Last Admin: 09/19/20 21:25 Dose: 60 mls/hr Documented by: TD Lactated Ringer's (Ringers, Lactated) 1,000 mls @ 999 mls/hr IV .BOLUS ONE Stop: 09/19/20 23:59 Last Admin: 09/19/20 23:08 Dose: 999 mls/hr Documented by: BETH Sodium Chloride (Saline Flush) 10 ml FLUSH ASDIRECTED PRN PRN Reason: Keep Vein Open Last Admin: 09/19/20 21:05 Dose: 10 ml Documented by: BETH Assessment/Plan Comment:: Plan laparoscopy possible laparotomy. Removal of a tube and possibly removal of an ovary. Active ectopic with positive test abdominal pain vaginal bleeding. No intrauterine seen on CT scan or ultrasound of the pelvis.
[2020-09-19] MEDS ORDERED: Citric Acid/Sodium Citrate Solution 30 ML Cup PO ONE (23:23)
[2020-09-19] MEDS ORDERED: Citric Acid/Sodium Citrate Solution 30 ML Cup ONE (23:30)
[2020-09-20] MEDS ORDERED: Glycopyrrolate 0.2 MG/ML SDV ONE (00:09)
[2020-09-20] MEDS ORDERED: Ketorolac 15 MG/ML SDV ONE (00:09)
[2020-09-20] MEDS ORDERED: Ondansetron 4 MG/2 ML SDV IVPUSH PRN ×2 (00:12→08:04)
[2020-09-20] MEDS ORDERED: HYDROmorphone 0.5 MG/0.5 ML Syringe IVPUSH PRN (00:12)
[2020-09-20] MEDS ORDERED: fentaNYL 100 MCG/2 ML SDV IVPUSH PRN (00:12)
--- NOTE | 2020-09-20 00:16 | PCM.PREANE ---
Preanesthetic Assessment - Procedure Proposed Procedure: Diagnostic Laparocopy, Removal ectopic pregnacny - Anesthesia/Transfusion/Family Hx Anesthesia History: No Prior Anesthesia Family History of Anesthesia Reaction: No - Review of Systems General: No Symptoms Pulmonary: No Symptoms (Smoker, 1 pack per week. ) Cardiovascular: No Symptoms Gastrointestinal: Abdominal Pain, Constipation Neurological: No Symptoms Other: Reports: None - Physical Assessment NPO Status Date: 09/19/20 NPO Status Time: 16:30 Vital Signs: Last Vital Signs Temp 36.3 C 09/19/20 17:44 Pulse 92 09/19/20 17:44 Resp 18 09/19/20 17:44 BP 141/71 H 09/19/20 17:44 Pulse Ox 100 09/19/20 17:44 Height: 1.63 m Weight: 77.111 kg ASA Class: 2E Mental Status: Alert & Oriented x3 Airway Class: Mallampati = 1 Dentition: Reports: Normal Dentition Thyro-Mental Finger Breadths: 3 Mouth Opening Finger Breadths: 3 ROM/Head Extension: Full Lungs: Clear to Auscultation, Normal Respiratory Effort Cardiovascular: Regular Rate, Regular Rhythm - Lab Values: Laboratory Last Values WBC 5.60 K/mm3 (3.98-10.04) 09/19/20 23:15 RBC 3.49 M/mm3 (3.98-5.22) L 09/19/20 23:15 Hgb 10.4 gm/dl (11.2-15.7) L 09/19/20 23:15 Hct 32.9 % (34.1-44.9) L 09/19/20 23:15 MCV 94.3 fl (79.4-94.8) 09/19/20 23:15 MCH 29.8 pg (25.6-32.2) 09/19/20 23:15 MCHC 31.6 g/dl (32.2-35.5) L 09/19/20 23:15 RDW Std Deviation 43.0 fL (36.4-46.3) 09/19/20 23:15 Plt Count 233 K/mm3 (182-369) 09/19/20 23:15 MPV 10.4 fl (9.4-12.3) 09/19/20 23:15 Neut % (Auto) 48.3 % (34.0-71.1) 09/19/20 23:15 Lymph % (Auto) 38.6 % (19.3-51.7) 09/19/20 23:15 Iron % (Auto) 11.1 % (4.7-12.5) 09/19/20 23:15 Eos % (Auto) 1.4 (0.7-5.8) 09/19/20 23:15 Baso % (Auto) 0.4 % (0.1-1.2) 09/19/20 23:15 Neut # (Auto) 2.71 K/mm3 (1.56-6.13) 09/19/20 23:15 Lymph # (Auto) 2.16 K/mm3 (1.18-3.74) 09/19/20 23:15 Iron # (Auto) 0.62 K/mm3 (0.24-0.36) H 09/19/20 23:15 Eos # (Auto) 0.08 K/mm3 (0.04-0.36) 09/19/20 23:15 Baso # (Auto) 0.02 K/mm3 (0.01-0.08) 09/19/20 23:15 Sodium 138 mEq/L (136-145) 09/19/20 19:55 Potassium 3.8 mEq/L (3.5-5.1) 09/19/20 19:55 Chloride 101 mEq/L (98-107) 09/19/20 19:55 Carbon Dioxide 29 mEq/L (21-32) 09/19/20 19:55 Anion Gap 11.8 (5-15) 09/19/20 19:55 BUN 7 mg/dL (7-18) 09/19/20 19:55 Creatinine 1.0 mg/dL (0.55-1.02) 09/19/20 19:55 Est Cr Clr Drug Dosing 75.55 mL/min 09/19/20 19:55 Estimated GFR (MDRD) > 60 mL/min (>60) 09/19/20 19:55 BUN/Creatinine Ratio 7.0 (14-18) L 09/19/20 19:55 Glucose 83 mg/dL (74-106) 09/19/20 19:55 Calcium 9.0 mg/dL (8.5-10.1) 09/19/20 19:55 Total Bilirubin 0.7 mg/dL (0.2-1.0) 09/19/20 19:55 AST 18 U/L (15-37) 09/19/20 19:55 ALT 20 U/L (14-59) 09/19/20 19:55 Alkaline Phosphatase 55 U/L (46-116) 09/19/20 19:55 C-Reactive Protein 1.3 mg/dL (<1.0) H* 09/19/20 19:55 Total Protein 6.7 g/dl (6.4-8.2) 09/19/20 19:55 Albumin 3.7 g/dl (3.4-5.0) 09/19/20 19:55 Globulin 3.0 gm/dL 09/19/20 19:55 Albumin/Globulin Ratio 1.2 (1-2) 09/19/20 19:55 Lipase 105 U/L (73-393) 09/19/20 19:55 HCG, Qual Positive (NEGATIVE) H 09/19/20 19:55 HCG, Quant 829.0 mIU/mL 09/19/20 19:55 SARS-CoV-2 RNA (ANAHI) Negative (NEGATIVE) 09/19/20 22:40 SARS CoV-2 RNA Rapid ANAHI Negative (NEGATIVE) 09/19/20 22:48 Blood Type B POSITIVE 09/19/20 19:55 Gel Antibody Screen Negative 09/19/20 19:55 - Allergies Allergies/Adverse Reactions: Allergies Allergy/AdvReac Type Severity Reaction Status Date / Time No Known Allergies Allergy Verified 09/19/20 17:46 - Anesthesia Plan Pre-Op Medication Ordered: Antacids, Anxiolytic - Acknowledgements Anesthesia Type Planned: General Anesthesia Pt an Appropriate Candidate for the Planned Anesthesia: Yes Alternatives and Risks of Anesthesia Discussed w Pt/Guardian: Yes Pt/Guardian Understands and Agrees with Anesthesia Plan: Yes PreAnesthesia Questionnaire - Past Health History Medical/Surgical History: Denies Medical/Surgical History - Infectious Disease History Infectious Disease History: Reports: Novel Coronavirus - SUBSTANCE USE Tobacco Use Status *Q: Current Every Day Tobacco User Recreational Drug Use History: No - HOME MEDS Home Medications: Home Meds . [No Known Home Meds] 09/17/20 [History] - CURRENT (IN HOUSE) MEDS Current Meds: Current Medications Sodium Chloride (Normal Saline) 100 mls @ 60 mls/hr IV ASDIRECTED AURELIA Last Admin: 09/19/20 21:25 Dose: 60 mls/hr Documented by: Sodium Chloride (Saline Flush) 10 ml FLUSH ASDIRECTED PRN PRN Reason: Keep Vein Open Last Admin: 09/19/20 21:05 Dose: 10 ml Documented by: Discontinued Medications Bupivacaine HCl (Marcaine 0.5%) Confirm Administered Dose 30 ml .ROUTE .STK-MED ONE Stop: 09/19/20 23:18 Cefazolin Sodium (Ancef) Confirm Administered Dose 2 gm .ROUTE .STK-MED ONE Stop: 09/19/20 23:05 Citric Acid/Sodium Citrate (Bicitra Solution) 30 ml PO ONETIME ONE Stop: 09/19/20 23:24 Last Admin: 09/19/20 23:32 Dose: 30 ml Documented by: Citric Acid/Sodium Citrate (Bicitra Solution) Confirm Administered Dose 30 ml .ROUTE .STK-MED ONE Stop: 09/19/20 23:31 Dexamethasone (Dexamethasone) Confirm Administered Dose 20 mg .ROUTE .STK-MED ONE Stop: 09/19/20 23:06 Fentanyl (Sublimaze) Confirm Administered Dose 250 mcg .ROUTE .STK-MED ONE Stop: 09/19/20 23:05 Glycopyrrolate (Robinul) Confirm Administered Dose 0.4 mg .ROUTE .STK-MED ONE Stop: 09/20/20 00:10 Lactated Ringer's (Ringers, Lactated) 1,000 mls @ 999 mls/hr IV .BOLUS ONE Stop: 09/19/20 23:59 Last Admin: 09/19/20 23:08 Dose: 999 mls/hr Documented by: Lidocaine HCl (Xylocaine-Mpf 1%) Confirm Administered Dose 4 mls @ as directed .ROUTE .STK-MED ONE Stop: 09/19/20 23:05 Lactated Ringer's (Ringers, Lactated) Confirm Administered Dose 1,000 mls @ as directed .ROUTE .STK-MED ONE Stop: 09/19/20 23:05 Lidocaine HCl (Xylocaine-Mpf 1%) Confirm Administered Dose 4 mls @ as directed .ROUTE .STK-MED ONE Stop: 09/19/20 23:05 Iopamidol (Isovue-300 (61%)) 100 ml IVPUSH ONETIME ONE Stop: 09/19/20 21:22 Last Admin: 09/19/20 21:25 Dose: 100 ml Documented by: Iopamidol (Isovue-300 (61%)) 50 ml IVPUSH ONETIME ONE Stop: 09/19/20 21:22 Last Admin: 09/19/20 21:25 Dose: 50 ml Documented by: Ketorolac Tromethamine (Toradol) Confirm Administered Dose 15 mg .ROUTE .STK-MED ONE Stop: 09/20/20 00:10 Midazolam HCl (Versed 1 Mg/Ml) Confirm Administered Dose 2 mg .ROUTE .STK-MED ONE Stop: 09/19/20 23:05 Neostigmine Methylsulfate (Neostigmine Methylsulfate) Confirm Administered Dose 5 mg .ROUTE .STK-MED ONE Stop: 09/20/20 00:10 Ondansetron HCl (Zofran) Confirm Administered Dose 4 mg .ROUTE .STK-MED ONE Stop: 09/19/20 23:05 Ondansetron HCl (Zofran) Confirm Administered Dose 4 mg .ROUTE .STK-MED ONE Stop: 09/19/20 23:06 Propofol (Diprivan 20 Ml) Confirm Administered Dose 400 mg .ROUTE .STK-MED ONE Stop: 09/19/20 23:05 Rocuronium [place] (Zemuron) Confirm Administered Dose 50 mg .ROUTE .STK-MED ONE Stop: 09/19/20 23:05
--- NOTE | 2020-09-20 00:45 | PCM.OPNOTE ---
- General Post-Op/Procedure Note Date of Surgery/Procedure: 09/20/20 Operative Procedure(s): Laparoscopy with left salpingectomy Pre Op Diagnosis: Positive test, suspected hemoperitoneum, lower abdominal pain, suspected ectopic . Post-Op Diagnosis: Peritoneum, left tubal Anesthesia Technique: General ET Tube Primary Surgeon: Paresh Mcconnell Secondary Surgeon: Deni Andujar Anesthesia Provider: Claudine Carrington Reason Lead C Developer Was Necessary: Assist in surgery, decrease comorbidity and mortality Role of Lead C Developer: Assist in surgery, decrease comorbidity and mortality Fluid Replacement, Intraop: 1,200 Output, Urine Amount: 150 EBL in mLs: 400 Drain/Tube Comments:: None Complications: None Condition: Good Free Text/Narrative:: Patient was transported to operating room #3 in main OR and placed under general anesthesia with endotracheal intubation in the supine position. CDs in place and functioning prior to surgery. Ancef 2 g given venously prior to surgery. Jay cath was placed to gravity drainage and removed after the procedure. The examination under anesthesia revealed suspected left ectopic . The umbilical incision was made after injecting 2 mL of Marcaine without epinephrine at the planned site. A 5 mm trocar was introduced after obtaining pneumoperitoneum without difficulty. A 12 mm trocar was placed at the midline suprapubically injecting 3 mL of Marcaine and approximately 12 mm incision the trocar was introduced without difficulty and one left abdominal incision 5 mm made 2 fingerbreadths and 2 fingerbreadths above the superior iliac crest and 5 mm trocar introduced without difficulty. There was approximately 400 mL ventral abdominal blood from the ectopic . The uterus appeared normal the right fallopian tube and ovary appeared normal the left ovary was normal the left fallopian tube was cyanotic consistent with ectopic on the left side. Utilizing grasper the affected tube was elevated and crossclamped with Enseal activated incised and the left fallopian tube removed without difficulty. It was then placed in Endobag and removed from the abdominal cavity. Patient was carried out hemoperitoneum was reduced and the abdominal cavity was closed after removing the trochars. The anterior fascia at the midline was closed with UR 6 urology needle with 0 Monocryl [id number] suture and the 3 skin incisions closed with 4-0 Monocryl subcuticular suture Dermabond applied. Sponge needle pack and instrument count correct prior to closure. Was transported postanesthesia care unit in satisfactory condition. No blood transfusion required. B positive I talked with the patient's sister and all questions answered to her voiced sa tisfaction. Images 001 shows the uterus at approximately 9:00 and the right fallopian tube and right ovary 002 shows the left fallopian tube as well as the uterus 003 shows a left fallopian tube with the cyanotic area indicating the area of the suspected ectopic . 004 a close review of the left fallopian tube with the suspected ectopic 005 shows the grasping of the left fallopian tube with the Enseal apparatus 006 shows area where the left fallopian tube was removed no bleeding some hemoperitoneum is still visible was subsequently reduced with suction 007 shows the uterus with hemoperitoneum posterior and anterior cul-de-sacs right ovary and right fallopian tube and a portion of the left ovary 008 the uterus after entering posterior cul-de-sac hemoperitoneum reduced 009 shows area of the left fallopian tube removal left ovary the uterus portion of the right ovary and the right fallopian tube and bowel at 6:00 010 shows the midline incision area after remove the trocar with no bleeding 011 left sided incision area after removal of trocar with no bleeding
--- NOTE | 2020-09-20 00:52 | PCM.POSTAN ---
POST ANESTHESIA ASSESSMENT - MENTAL STATUS Mental Status: Alert, Oriented - VITAL SIGNS Vital Signs: Last Vital Signs Temp 36.3 C 09/19/20 17:44 Pulse 92 09/19/20 17:44 Resp 18 09/19/20 17:44 BP 141/71 H 09/19/20 17:44 Pulse Ox 100 09/19/20 17:44 0042 109/62 74 18 100% 97.9F - RESPIRATORY Respiratory Status: Respiratory Rate WNL, Airway Patent, O2 Saturation Stable - CARDIOVASCULAR CV Status: Pulse Rate WNL, Blood Pressure Stable - GASTROINTESTINAL GI Status: No Symptoms - PAIN Pain Score: 0 - POST OP HYDRATION Hydration Status: Adequate & Stable
--- NOTE | 2020-09-20 01:17 | PCM48HPAN ---
Post Anesthesia Note - EVALUATION WITHIN 48HRS OF ANESTHETIC Vital Signs in Normal Range: Yes Patient Participated in Evaluation: Yes Respiratory Function Stable: Yes Airway Patent: Yes Cardiovascular Function Stable: Yes Hydration Status Stable: Yes Pain Control Satisfactory: Yes Nausea and Vomiting Control Satisfactory: Yes Mental Status Recovered: Yes Vital Signs: Last Vital Signs Temp 36.6 C 09/20/20 01:00 Pulse 62 09/20/20 01:00 Resp 12 09/20/20 01:00 BP 118/59 L 09/20/20 01:00 Pulse Ox 100 09/20/20 01:11
[2020-09-20] MEDS ORDERED: Ibuprofen 600 MG Tab PO PRN (01:50)
[2020-09-20] MEDS ORDERED: Ondansetron 4 MG in Sodium Chloride 0.9% 50 ML IV PRN (01:50)
[2020-09-20] MEDS ORDERED: Acetaminophen 325 MG Tab PO PRN (01:50)
[2020-09-20] MEDS ORDERED: Acetaminophen/oxyCODONE 325-5 MG Tab PO PRN ×2 (01:50)
--- NOTE | 2020-09-20 10:07 | CR ---
PROCEDURE INFORMATION: Exam: XR Abdomen, 3 or More Views Exam date and time: 09/19/2020 6:26 PM Age: 25 years old Clinical indication: Constipation TECHNIQUE: Imaging protocol: XR of the abdomen. Views: 3 or more views. COMPARISON: DX Abdomen 2V AP Flat Upright 09/17/2020 7:45 PM FINDINGS: Gastrointestinal tract: Nonspecific bowel gas pattern. There are multiple air- fluid levels with some minimally gas distended loops of bowel within the mid/upper abdomen. Intraperitoneal space: No free intraperitoneal gas. Bones/joints: Minimal S-shaped scoliotic curvature. IMPRESSION: Scattered minimally distended loops of bowel with multiple air-fluid levels. Findings are nonspecific but could relate to an underlying gastroenteritis/ileus. Possibility of early or developing bowel obstruction cannot be excluded. Thank you for allowing us to participate in the care of your patient. Dictated and Authenticated by: Deric Verdugo MD 09/19/2020 7:48 PM Central Time ([place] & [place]) [facility]
--- NOTE | 2020-09-20 10:10 | CT ---
Addendum created by Deric Verdugo MD on 09/19/2020 10:58 PM Central Time ([place] & [place]): THIS REPORT CONTAINS FINDINGS THAT MAY BE CRITICAL TO PATIENT CARE. The findings were verbally communicated via telephone conference with TIARA MANRIQUE at 10:57 PM OFFICE SPECIALIST on 09/19/2020. The findings were acknowledged and understood. Initial Report created on 09/19/2020 10:54 PM Central Time ([place] & [place]): PROCEDURE INFORMATION: Exam: CT Abdomen And Pelvis With Contrast Exam date and time: 09/19/2020 8:42 PM Age: 25 years old Clinical indication: Abdominal pain; Patient HX: Bloating, distention, passing gas with loose stool onset 5 days ago and worsening TECHNIQUE: Imaging protocol: Computed tomography of the abdomen and pelvis with intravenous contrast. Radiation optimization: All CT scans at this facility use at least one of these dose optimization techniques: automated exposure control; mA and/or kV adjustment per patient size (includes targeted exams where dose is matched to clinical indication); or iterative reconstruction. Contrast material: ISOVUE 300; Contrast volume: 125 ml; Contrast route: INTRAVENOUS (IV); Other contrast: Oral, GASTROGRAFIN, 90; COMPARISON: DX Abdomen 2V AP Flat Upright 09/19/2020 6:26 PM FINDINGS: Liver: Normal. No mass. Gallbladder and bile ducts: Normal. No calcified stones. No ductal dilation. Pancreas: Normal. No ductal dilation. Spleen: Normal. No splenomegaly. Adrenal glands: Normal. No mass. Kidneys and ureters: Normal. No hydronephrosis. Stomach and bowel: No bowel distention to suggest bowel obstruction. There is contrast to the level of the rectum. Appendix: No evidence of appendicitis. Intraperitoneal space: There is moderate amount of high density intraperitoneal fluid suggesting hemoperitoneum. Large amount of heterogeneous high density fluid/abnormality in the deep pelvis again suggesting blood products. Vasculature: Unremarkable. No abdominal aortic aneurysm. Lymph nodes: Unremarkable. No enlarged lymph nodes. Urinary bladder: Unremarkable as visualized. Reproductive: Bilateral adnexal/ovarian cysts largest on the right measuring up to 3.5 cm. Bones/joints: Unremarkable. No acute fracture. Soft tissues: Unremarkable. IMPRESSION: 1. There is a moderate amount of high density intraperitoneal fluid suggesting hemoperitoneum. Moderate to large amount of heterogeneous high density pelvic fluid also likely representing complexity/blood products. Etiology uncertain although possible etiologies would include ruptured hemorrhagic ovarian cysts. Recommend clinical correlation and pelvic ultrasound to better assess the ovaries/pelvic organs. 2. Correlate with beta HCG values to exclude any possibility of underlying ectopic . 3. No evidence for bowel obstruction. Thank you for allowing us to participate in the care of your patient. Dictated and Authenticated by: Deric Verdugo MD 09/19/2020 10:54 PM Central Time ([place] & [place]) NAYAN
--- NOTE | 2020-09-20 10:13 | US ---
Addendum created by Elvis Tirado MD on 09/20/2020 12:00 AM Central Time ([place] & [place]): THIS REPORT CONTAINS FINDINGS THAT MAY BE CRITICAL TO PATIENT CARE. The findings were verbally communicated via telephone conference with TIARA MANRIQUE at 11:59 PM MACHINE FITTER on 09/19/2020. The findings were acknowledged and understood. Initial Report created on 09/19/2020 11:57 PM Central Time ([place] & [place]): PROCEDURE INFORMATION: Exam: US , Transvaginal Exam date and time: 09/19/2020 10:16 PM Age: 25 years old Clinical indication: Other: Abd pain; Gestational age or lmp: Unknown; Patient HX: When exam was finished, the er staff informed me that the hcg was positive. Changed order to an ob transvaginal. TECHNIQUE: Imaging protocol: Real-time transvaginal obstetrical ultrasound of the maternal pelvis and a first trimester with image documentation. Transvaginal imaging was used for better evaluation of the fetus, adnexa, and/or cervix. COMPARISON: CT Abdomen Pelvis w Cont 09/19/2020 8:42 PM FINDINGS: Gestation: There is no intrauterine gestational sac, pole, yolk sac, or cardiac activity. History of a positive test is been provided. MATERNAL: Uterus: The uterus measures 5.7 x 3.1 x 4.0 cm The endometrium measures 3 mm. Right adnexa: The right ovary measures 5.2 x 3.6 x 3.1 cm. There multiple small follicles in the right ovary. Color-flow is documented. There is a 3.8 cm cyst in the right ovary with low level echoes , question hemorrhagic cyst. Left adnexa: The left ovary measures 4.2 by 3.0 x 3.6 cm. Color-flow is documented. Multiple small follicles seen. There is a 2.5 cm cyst in the left ovary. Intraperitoneal space: There is a large amount of echogenic fluid in the pelvis question hemoperitoneum. IMPRESSION: 1. Hemorrhagic cyst right ovary. Simple cyst left ovary. 2. No intrauterine gestation. 3. Probable hemoperitoneum. Ectopic gestation requires exclusion. Thank you for allowing us to participate in the care of your patient. Dictated and Authenticated by: Elvis Tirado MD 09/19/2020 11:57 PM Central Time ([place] & [place]) [facility] SYSTEM[facility]
--- NOTE | 2020-09-20 12:37 | PCM.DCSUM1 ---
Discharge Summary - Hospital Course Free Text/Narrative:: [facility] Post-Op/Procedure Note Patient Name: CORNELL ESTEVEZ Date of : 89 Patient Status: Surgical Day Care Attending Provider: Paresh Mcconnell Date: 09/20/20 00:36 Initialization Date: 09/20/20 00:36 - General Post-Op/Procedure Note Date of Surgery/Procedure: 09/20/20 Operative Procedure(s): Laparoscopy with left salpingectomy Pre Op Diagnosis: Positive test, suspected hemoperitoneum, lower abdominal pain, suspected ectopic . Post-Op Diagnosis: Peritoneum, left tubal Anesthesia Technique: General ET Tube Primary Surgeon: Paresh Mcconnell Secondary Surgeon: Deni Andujar Anesthesia Provider: Claudine Carrington Reason Data Abstractor Was Necessary: Assist in surgery, decrease comorbidity and mortality Role of Data Abstractor: Assist in surgery, decrease comorbidity and mortality Fluid Replacement, Intraop: 1,200 Output, Urine Amount: 150 EBL in mLs: 400 Drain/Tube Comments:: None Complications: None Condition: Good Free Text/Narrative:: Patient was transported to operating room #3 in main OR and placed under general anesthesia with endotracheal intubation in the supine position. CDs in place and functioning prior to surgery. Ancef 2 g given venously prior to surgery. Jay cath was placed to gravity drainage and removed after the procedure. The examination under anesthesia revealed suspected left ectopic . The umbilical incision was made after injecting 2 mL of Marcaine without epinephrine at the planned site. A 5 mm trocar was introduced after obtaining pneumoperitoneum without difficulty. A 12 mm trocar was placed at the midline suprapubically injecting 3 mL of Marcaine and approximately 12 mm incision the trocar was introduced without difficulty and one left abdominal incision 5 mm made 2 fingerbreadths and 2 fingerbreadths above the superior iliac crest and 5 mm trocar introduced without difficulty. There was approximately 400 mL ventral abdominal blood from the ectopic . The uterus appeared normal the right fallopian tube and ovary appeared normal the left ovary was normal the left fallopian tube was cyanotic consistent with ectopic on the left side. Utilizing grasper the affected tube was elevated and crossclamped with Enseal activated incised and the left fallopian tube removed without difficulty. It was then placed in Endobag and removed from the abdominal cavity. Patient was carried out hemoperitoneum was reduced and the abdominal cavity was closed after removing the trochars. The anterior fascia at the midline was closed with UR 6 urology needle with 0 Monocryl [id number] suture and the 3 skin incisions closed with 4-0 Monocryl subcuticular suture Dermabond applied. Sponge needle pack and instrument count correct prior to closure. Was transported postanesthesia care unit in satisfactory condition. No blood transfusion required. B positive I talked with the patient's sister and all questions answered to her voiced satisfaction. Images 001 shows the uterus at approximately 9:00 and the right fallopian tube and right ovary 002 shows the left fallopian tube as well as the uterus 003 shows a left fallopian tube with the cyanotic area indicating the area of the suspected ectopic . 004 a close review of the left fallopian tube with the suspected ectopic 005 shows the grasping of the left fallopian tube with the Enseal apparatus 006 shows area where the left fallopian tube was removed no bleeding some hemoperitoneum is still visible was subsequently reduced with suction 007 shows the uterus with hemoperitoneum posterior and anterior cul-de-sacs right ovary and right fallopian tube and a portion of the left ovary 008 the uterus after entering posterior cul-de-sac hemoperitoneum reduced 009 shows area of the left fallopian tube removal left ovary the uterus portion of the right ovary and the right fallopian tube and bowel at 6:00 010 shows the midline incision area after remove the trocar with no bleeding 011 left sided incision area after removal of trocar with no bleeding HPI Initial Comments: [facility] Post-Op/Procedure Note Patient Name: CORNELL ESTEVEZ Date of : [birth year] Patient Status: Surgical Day Care Attending Provider: Paresh Mcconnell Date: 09/20/20 00:36 Initialization Date: 09/20/20 00:36 - General Post-Op/Procedure Note Date of Surgery/Procedure: 09/20/20 Operative Procedure(s): Laparoscopy with left salpingectomy Pre Op Diagnosis: Positive test, suspected hemoperitoneum, lower abdominal pain, suspected ectopic . Post-Op Diagnosis: Peritoneum, left tubal Anesthesia Technique: General ET Tube Primary Surgeon: Paresh Mcconnell Secondary Surgeon: Deni Andujar Anesthesia Provider: Claudine Carrington Reason Data Abstractor Was Necessary: Assist in surgery, decrease comorbidity and mortality Role of Data Abstractor: Assist in surgery, decrease comorbidity and mortality Fluid Replacement, Intraop: 1,200 Output, Urine Amount: 150 EBL in mLs: 400 Drain/Tube Comments:: None Complications: None Condition: Good Free Text/Narrative:: Patient was transported to operating room #3 in main OR and placed under general anesthesia with endotracheal intubation in the supine position. CDs in place and functioning prior to surgery. Ancef 2 g given venously prior to surgery. Jay cath was placed to gravity drainage and removed after the procedure. The examination under anesthesia revealed suspected left ectopic . The umbilical incision was made after injecting 2 mL of Marcaine without epinephrine at the planned site. A 5 mm trocar was introduced after obtaining pneumoperitoneum without difficulty. A 12 mm trocar was placed at the midline suprapubically injecting 3 mL of Marcaine and approximately 12 mm incision the trocar was introduced without difficulty and one left abdominal incision 5 mm made 2 fingerbreadths and 2 fingerbreadths above the superior iliac crest and 5 mm trocar introduced without difficulty. There was approximately 400 mL ventral abdominal blood from the ectopic . The uterus appeared normal the right fallopian tube and ovary appeared normal the left ovary was normal the left fallopian tube was cyanotic consistent with ectopic on the left side. Utilizing grasper the affected tube was elevated and crossclamped with Enseal activated incised and the left fallopian tube removed without difficulty. It was then placed in Endobag and removed from the abdominal cavity. Patient was carried out hemoperitoneum was reduced and the abdominal cavity was closed after removing the trochars. The anterior fascia at the midline was closed with UR 6 urology needle with 0 Monocryl [id number] suture and the 3 skin incisions closed with 4-0 Monocryl subcuticular suture Dermabond applied. Sponge needle pack and instrument count correct prior to closure. Was transported postanesthesia care unit in satisfactory condition. No blood transfusion required. B positive I talked with the patient's sister and all questions answered to her voiced satisfaction. Images 001 shows the uterus at approximately 9:00 and the right fallopian tube and right ovary 002 shows the left fallopian tube as well as the uterus 003 shows a left fallopian tube with the cyanotic area indicating the area of the suspected ectopic . 004 a close review of the left fallopian tube with the suspected ectopic 005 shows the grasping of the left fallopian tube with the Enseal apparatus 006 shows area where the left fallopian tube was removed no bleeding some hemoperitoneum is still visible was subsequently reduced with suction 007 shows the uterus with hemoperitoneum posterior and anterior cul-de-sacs right ovary and right fallopian tube and a portion of the left ovary 008 the uterus after entering posterior cul-de-sac hemoperitoneum reduced 009 shows area of the left fallopian tube removal left ovary the uterus portion of the right ovary and the right fallopian tube and bowel at 6:00 010 shows the midline incision area after remove the trocar with no bleeding 011 left sided incision area after removal of trocar with no bleeding Brief History: [facility] . Post-Op/Procedure Note. [facility]: [id number] Date of : [birth year]Patient Status: Surgical Day Care. [facility]: [id number]. Date: 09/20/20 00:36Initialization Date: 09/20/20 00:36. - General Post-Op/Procedure Note. Date of Surgery/Procedure: 09/20/20. Operative Procedure(s): Laparoscopy with left salpingectomy. Pre Op Diagnosis: Positive test, suspected hemoperitoneum, lower abdominal pain, suspected ectopic . Post-Op Diagnosis: Peritoneum, left tubal . Anesthesia Technique: General ET Tube. Primary Surgeon: Paresh Mcconnell. Secondary Surgeon: Deni Andujar. Anesthesia Provider: Claudine Carrington. Reason Data Abstractor Was Necessary: Assist in surgery, decrease comorbidity and mortality. Role of Data Abstractor: Assist in surgery, decrease comorbidity and mortality. Fluid Replacement, Intraop: 1,200. Output, Urine Amount: 150. EBL in mLs: 400. Drain/Tube Comments:: None. Complications: None. Condition: Good. Free Text/Narrative:: Patient was transported to operating room #3 in main OR and placed under general anesthesia with endotracheal intubation in the supine position. CDs in place and functioning prior to surgery. Ancef 2 g given venously prior to surgery. Jay cath was placed to gravity drainage and removed after the procedure. The examination under anesthesia revealed suspected left ectopic . The umbilical incision was made after injecting 2 mL of Marcaine without epinephrine at the planned site. A 5 mm trocar was introduced after obtaining pneumoperitoneum without difficulty. A 12 mm trocar was placed at the midline suprapubically injecting 3 mL of Marcaine and approximately 12 mm incision the trocar was introduced without difficulty and one left abdominal incision 5 mm made 2 fingerbreadths and 2 fingerbreadths above the superior iliac crest and 5 mm trocar introduced without difficulty. There was approximately 400 mL ventral abdominal blood from the ectopic . The uterus appeared normal the right fallopian tube and ovary appeared normal the left ovary was normal the left fallopian tube was cyanotic consistent with ectopic on the left side. Utilizing grasper the affected tube was elevated and crossclamped with Enseal activated incised and the left fallopian tube removed without difficulty. It was then placed in Endobag and removed from the abdominal cavity. Patient was carried out hemoperitoneum was reduced and the abdominal cavity was closed after removing the trochars. The anterior fascia at the midline was closed with UR 6 urology needle with 0 Monocryl [id number] suture and the 3 skin incisions closed with 4-0 Monocryl subcuticular suture Dermabond applied. Sponge needle pack and instrument count correct prior to closure. Was transported postanesthesia care unit in satisfactory condition. No blood transfusion required. B positive. I talked with the patient's sister and all questions answered to her voiced satisfaction. Images. 001 shows the uterus at approximately 9:00 and the right fallopian tube and right ovary. 002 shows the left fallopian tube as well as the uterus. 003 shows a left fallopian tube with the cyanotic area indicating the area of the suspected ectopic . 004 a close review of the left fallopian tube with the suspected ectopic . 005 shows the grasping of the left fallopian tube with the Enseal apparatus. 006 shows area where the left fallopian tube was removed no bleeding some hemoperitoneum is still visible was subsequently reduced with suction. 007 shows the uterus with hemoperitoneum posterior and anterior cul-de-sacs right ovary and right fallopian tube and a portion of the left ovary. 008 the uterus after entering posterior cul-de-sac hemoperitoneum reduced. 009 shows area of the left fallopian tube removal left ovary the uterus portion of the right ovary and the right fallopian tube and bowel at 6:00. 010 shows the midline incision area after remove the trocar with no bleeding. 011 left sided incision area after removal of trocar with no bleeding Diagnosis: Stroke: No - Discharge Data Discharge Date: 09/20/20 Discharge Disposition: Home, Self-Care 01 Condition: Good - Referral to Home Health Primary Care Physician: PCP None - Discharge Diagnosis/Problem(s) (1) Pelvic pain with positive beta-human chorionic gonadotropin (BhCG) in female SNOMED Code(s): 227900850 ICD Code: Z33.1 - STATE, INCIDENTAL; R10.2 - PELVIC AND PERINEAL PAIN Status: Acute Current Visit: Yes (2) Abdominal pain in female SNOMED Code(s): 17705785, 679793190 ICD Code: R10.9 - UNSPECIFIED ABDOMINAL PAIN Status: Acute Current Visit: Yes (3) Hemoperitoneum SNOMED Code(s): 001399206 ICD Code: K66.1 - HEMOPERITONEUM Status: Acute Current Visit: Yes - Patient Summary/Data Operative Procedure(s) Performed: Laparoscopy with left salpingectomy Complications: none Consults: none Hospital Course: uneventful - Patient Instructions Diet: Usual Diet as Tolerated Wound/Incision Care: Keep Operative Site/Wound Site Clean and Dry Notify Provider of: Fever, Increased Pain, Swelling and Redness, Drainage, Nausea and/or Vomiting - Discharge Plan *PRESCRIPTION DRUG MONITORING PROGRAM REVIEWED*: Not Applicable *COPY OF PRESCRIPTION DRUG MONITORING REPORT IN PATIENT MAYCO: Not Applicable Home Medications: Home Meds Acetaminophen [Tylenol] 650 mg PO Q6H PRN tablet 09/20/20 [Rx] Ibuprofen [Motrin] 600 mg PO Q6H PRN tablet 09/20/20 [Rx] Patient Handouts: Steps to Quit Smoking Forms: ED Department Discharge Referrals: PCP,None [Primary Care Provider] - - Discharge Summary/Plan Comment DC Time >30 min.: No - Patient Data Vitals - Most Recent: Last Vital Signs Temp 98.8 F 09/20/20 07:48 Pulse 84 09/20/20 07:48 Resp 16 09/20/20 07:48 BP 114/58 L 09/20/20 07:48 Pulse Ox 100 09/20/20 07:48 Weight - Most Recent: 170 lb I&O - Last 24 hours: Intake & Output 09/19/20 09/20/20 09/20/20 22:59 06:59 14:59 Intake Total 1500 920 Output Total 300 1025 Balance 1200 -105 Lab Results - Last 24 hrs: Laboratory Results - last 24 hr 09/19/20 09/19/20 09/19/20 Range/Units 19:55 19:55 19:55 WBC 4.99 (3.98-10.04) K/mm3 RBC 3.57 L (3.98-5.22) M/mm3 Hgb 10.7 L (11.2-15.7) gm/dl Hct 33.6 L (34.1-44.9) % MCV 94.1 (79.4-94.8) fl MCH 30.0 (25.6-32.2) pg MCHC 31.8 L (32.2-35.5) g/dl RDW Std Deviation 42.7 (36.4-46.3) fL Plt Count 225 (182-369) K/mm3 MPV 10.7 (9.4-12.3) fl Neut % (Auto) 61.3 (34.0-71.1) % Lymph % (Auto) 26.9 (19.3-51.7) % [place] % (Auto) 10.4 (4.7-12.5) % Eos % (Auto) 1.0 (0.7-5.8) Baso % (Auto) 0.2 (0.1-1.2) % Neut # (Auto) 3.06 (1.56-6.13) K/mm3 Lymph # (Auto) 1.34 (1.18-3.74) K/mm3 [place] # (Auto) 0.52 H (0.24-0.36) K/mm3 Eos # (Auto) 0.05 (0.04-0.36) K/mm3 Baso # (Auto) 0.01 (0.01-0.08) K/mm3 Sodium 138 (136-145) mEq/L Potassium 3.8 (3.5-5.1) mEq/L Chloride 101 (98-107) mEq/L Carbon Dioxide 29 (21-32) mEq/L Anion Gap 11.8 (5-15) BUN 7 (7-18) mg/dL Creatinine 1.0 (0.55-1.02) mg/dL Est Cr Clr Drug Dosing 75.55 mL/min Estimated GFR (MDRD) > 60 (>60) mL/min BUN/Creatinine Ratio 7.0 L (14-18) Glucose 83 (74-106) mg/dL Calcium 9.0 (8.5-10.1) mg/dL Total Bilirubin 0.7 (0.2-1.0) mg/dL AST 18 (15-37) U/L ALT 20 (14-59) U/L Alkaline Phosphatase 55 (46-116) U/L C-Reactive Protein 1.3 H* (<1.0) mg/dL Total Protein 6.7 (6.4-8.2) g/dl Albumin 3.7 (3.4-5.0) g/dl Globulin 3.0 gm/dL Albumin/Globulin Ratio 1.2 (1-2) Lipase 105 (73-393) U/L HCG, Qual Positive H (NEGATIVE) HCG, Quant mIU/mL SARS-CoV-2 RNA (ANAHI) (NEGATIVE) SARS CoV-2 RNA Rapid ANAHI (NEGATIVE) Blood Type Gel Antibody Screen 09/19/20 09/19/20 09/19/20 Range/Units 19:55 19:55 22:40 WBC (3.98-10.04) K/mm3 RBC (3.98-5.22) M/mm3 Hgb (11.2-15.7) gm/dl Hct (34.1-44.9) % MCV (79.4-94.8) fl MCH (25.6-32.2) pg MCHC (32.2-35.5) g/dl RDW Std Deviation (36.4-46.3) fL Plt Count (182-369) K/mm3 MPV (9.4-12.3) fl Neut % (Auto) (34.0-71.1) % Lymph % (Auto) (19.3-51.7) % [place] % (Auto) (4.7-12.5) % Eos % (Auto) (0.7-5.8) Baso % (Auto) (0.1-1.2) % Neut # (Auto) (1.56-6.13) K/mm3 Lymph # (Auto) (1.18-3.74) K/mm3 [place] # (Auto) (0.24-0.36) K/mm3 Eos # (Auto) (0.04-0.36) K/mm3 Baso # (Auto) (0.01-0.08) K/mm3 Sodium (136-145) mEq/L Potassium (3.5-5.1) mEq/L Chloride (98-107) mEq/L Carbon Dioxide (21-32) mEq/L Anion Gap (5-15) BUN (7-18) mg/dL Creatinine (0.55-1.02) mg/dL Est Cr Clr Drug Dosing mL/min Estimated GFR (MDRD) (>60) mL/min BUN/Creatinine Ratio (14-18) Glucose (74-106) mg/dL Calcium (8.5-10.1) mg/dL Total Bilirubin (0.2-1.0) mg/dL AST (15-37) U/L ALT (14-59) U/L Alkaline Phosphatase (46-116) U/L C-Reactive Protein (<1.0) mg/dL Total Protein (6.4-8.2) g/dl Albumin (3.4-5.0) g/dl Globulin gm/dL Albumin/Globulin Ratio (1-2) Lipase (73-393) U/L HCG, Qual (NEGATIVE) HCG, Quant 829.0 mIU/mL SARS-CoV-2 RNA (ANAHI) Negative (NEGATIVE) SARS CoV-2 RNA Rapid ANAHI (NEGATIVE) Blood Type B POSITIVE Gel Antibody Screen Negative 09/19/20 09/19/20 09/20/20 Range/Units 22:48 23:15 07:27 WBC 5.60 (3.98-10.04) K/mm3 RBC 3.49 L (3.98-5.22) M/mm3 Hgb 10.4 L (11.2-15.7) gm/dl Hct 32.9 L (34.1-44.9) % MCV 94.3 (79.4-94.8) fl MCH 29.8 (25.6-32.2) pg MCHC 31.6 L (32.2-35.5) g/dl RDW Std Deviation 43.0 (36.4-46.3) fL Plt Count 233 (182-369) K/mm3 MPV 10.4 (9.4-12.3) fl Neut % (Auto) 48.3 (34.0-71.1) % Lymph % (Auto) 38.6 (19.3-51.7) % [place] % (Auto) 11.1 (4.7-12.5) % Eos % (Auto) 1.4 (0.7-5.8) Baso % (Auto) 0.4 (0.1-1.2) % Neut # (Auto) 2.71 (1.56-6.13) K/mm3 Lymph # (Auto) 2.16 (1.18-3.74) K/mm3 [place] # (Auto) 0.62 H (0.24-0.36) K/mm3 Eos # (Auto) 0.08 (0.04-0.36) K/mm3 Baso # (Auto) 0.02 (0.01-0.08) K/mm3 Sodium (136-145) mEq/L Potassium (3.5-5.1) mEq/L Chloride (98-107) mEq/L Carbon Dioxide (21-32) mEq/L Anion Gap (5-15) BUN (7-18) mg/dL Creatinine (0.55-1.02) mg/dL Est Cr Clr Drug Dosing mL/min Estimated GFR (MDRD) (>60) mL/min BUN/Creatinine Ratio (14-18) Glucose (74-106) mg/dL Calcium (8.5-10.1) mg/dL Total Bilirubin (0.2-1.0) mg/dL AST (15-37) U/L ALT (14-59) U/L Alkaline Phosphatase (46-116) U/L C-Reactive Protein (<1.0) mg/dL Total Protein (6.4-8.2) g/dl Albumin (3.4-5.0) g/dl Globulin gm/dL Albumin/Globulin Ratio (1-2) Lipase (73-393) U/L HCG, Qual (NEGATIVE) HCG, Quant 656.0 mIU/mL SARS-CoV-2 RNA (ANAHI) (NEGATIVE) SARS CoV-2 RNA Rapid ANAHI Negative (NEGATIVE) Blood Type Gel Antibody Screen 09/20/20 Range/Units 07:27 WBC 7.69 (3.98-10.04) K/mm3 RBC 3.59 L (3.98-5.22) M/mm3 Hgb 10.8 L (11.2-15.7) gm/dl Hct 34.0 L (34.1-44.9) % MCV 94.7 (79.4-94.8) fl MCH 30.1 (25.6-32.2) pg MCHC 31.8 L (32.2-35.5) g/dl RDW Std Deviation 43.5 (36.4-46.3) fL Plt Count 224 (182-369) K/mm3 MPV 10.9 (9.4-12.3) fl Neut % (Auto) 90.3 H (34.0-71.1) % Lymph % (Auto) 8.2 L (19.3-51.7) % [place] % (Auto) 1.2 L (4.7-12.5) % Eos % (Auto) 0 L (0.7-5.8) Baso % (Auto) 0.0 L (0.1-1.2) % Neut # (Auto) 6.95 H (1.56-6.13) K/mm3 Lymph # (Auto) 0.63 L (1.18-3.74) K/mm3 [place] # (Auto) 0.09 L (0.24-0.36) K/mm3 Eos # (Auto) 0.00 L (0.04-0.36) K/mm3 Baso # (Auto) 0.00 L (0.01-0.08) K/mm3 Sodium (136-145) mEq/L Potassium (3.5-5.1) mEq/L Chloride (98-107) mEq/L Carbon Dioxide (21-32) mEq/L Anion Gap (5-15) BUN (7-18) mg/dL Creatinine (0.55-1.02) mg/dL Est Cr Clr Drug Dosing mL/min Estimated GFR (MDRD) (>60) mL/min BUN/Creatinine Ratio (14-18) Glucose (74-106) mg/dL Calcium (8.5-10.1) mg/dL Total Bilirubin (0.2-1.0) mg/dL AST (15-37) U/L ALT (14-59) U/L Alkaline Phosphatase (46-116) U/L C-Reactive Protein (<1.0) mg/dL Total Protein (6.4-8.2) g/dl Albumin (3.4-5.0) g/dl Globulin gm/dL Albumin/Globulin Ratio (1-2) Lipase (73-393) U/L HCG, Qual (NEGATIVE) HCG, Quant mIU/mL SARS-CoV-2 RNA (ANAHI) (NEGATIVE) SARS CoV-2 RNA Rapid ANAHI (NEGATIVE) Blood Type Gel Antibody Screen Med Orders - Current: Current Medications Acetaminophen (Tylenol) 650 mg PO Q6H PRN PRN Reason: Pain Fentanyl (Sublimaze) 50 mcg IVPUSH Q5M PRN PRN Reason: Pain Hydromorphone HCl (Dilaudid) 0.5 mg IVPUSH Q10M PRN PRN Reason: Pain (severe 7-10) Sodium Chloride (Normal Saline) 100 mls @ 60 mls/hr IV ASDIRECTED AURELIA Last Admin: 09/19/20 21:25 Dose: 60 mls/hr Documented by: Ibuprofen (Motrin) 600 mg PO Q6H PRN PRN Reason: Pain Last Admin: 09/20/20 06:50 Dose: 600 mg Documented by: Ondansetron HCl (Zofran) 4 mg IVPUSH ONETIME PRN PRN Reason: Nausea/Vomiting Ondansetron HCl (Zofran) 4 mg IVPUSH Q4H PRN PRN Reason: NAUSEA Oxycodone/Acetaminophen (Percocet 325-5 Mg) 1 tab PO Q6H PRN PRN Reason: Abdominal Pain Last Admin: 09/20/20 02:08 Dose: 1 tab Documented by: Oxycodone/Acetaminophen (Percocet 325-5 Mg) 2 tab PO Q6H PRN PRN Reason: Pain (severe 7-10) Sodium Chloride (Saline Flush) 10 ml FLUSH ASDIRECTED PRN PRN Reason: Keep Vein Open Last Admin: 09/19/20 21:05 Dose: 10 ml Documented by: Discontinued Medications Bupivacaine HCl (Marcaine 0.5%) Confirm Administered Dose 30 ml .ROUTE .STK-MED ONE Stop: 09/19/20 23:18 Last Admin: 09/19/20 23:59 Dose: 6 ml Documented by: Cefazolin Sodium (Ancef) Confirm Administered Dose 2 gm .ROUTE .STK-MED ONE Stop: 09/19/20 23:05 Citric Acid/Sodium Citrate (Bicitra Solution) 30 ml PO ONETIME ONE Stop: 09/19/20 23:24 Last Admin: 09/19/20 23:32 Dose: 30 ml Documented by: Citric Acid/Sodium Citrate (Bicitra Solution) Confirm Administered Dose 30 ml .ROUTE .STK-MED ONE Stop: 09/19/20 23:31 Last Admin: 09/20/20 02:11 Dose: Not Given Documented by: Dexamethasone (Dexamethasone) Confirm Administered Dose 20 mg .ROUTE .STK-MED ONE Stop: 09/19/20 23:06 Fentanyl (Sublimaze) Confirm Administered Dose 250 mcg .ROUTE .STK-MED ONE Stop: 09/19/20 23:05 Glycopyrrolate (Robinul) Confirm Administered Dose 0.4 mg .ROUTE .STK-MED ONE Stop: 09/20/20 00:10 Lactated Ringer's (Ringers, Lactated) 1,000 mls @ 999 mls/hr IV .BOLUS ONE Stop: 09/19/20 23:59 Last Admin: 09/19/20 23:08 Dose: 999 mls/hr Documented by: Lidocaine HCl (Xylocaine-Mpf 1%) Confirm Administered Dose 4 mls @ as directed .ROUTE .STK-MED ONE Stop: 09/19/20 23:05 Lactated Ringer's (Ringers, Lactated) Confirm Administered Dose 1,000 mls @ as directed .ROUTE .STK-MED ONE Stop: 09/19/20 23:05 Lidocaine HCl (Xylocaine-Mpf 1%) Confirm Administered Dose 4 mls @ as directed .ROUTE .STK-MED ONE Stop: 09/19/20 23:05 Ondansetron HCl 4 mg/ Sodium (Chloride) 52 mls @ 100 mls/hr IV Q4H PRN PRN Reason: Nausea Iopamidol (Isovue-300 (61%)) 100 ml IVPUSH ONETIME ONE Stop: 09/19/20 21:22 Last Admin: 09/19/20 21:25 Dose: 100 ml Documented by: Iopamidol (Isovue-300 (61%)) 50 ml IVPUSH ONETIME ONE Stop: 09/19/20 21:22 Last Admin: 09/19/20 21:25 Dose: 50 ml Documented by: Ketorolac Tromethamine (Toradol) Confirm Administered Dose 15 mg .ROUTE .STK-MED ONE Stop: 09/20/20 00:10 Midazolam HCl (Versed 1 Mg/Ml) Confirm Administered Dose 2 mg .ROUTE .STK-MED ONE Stop: 09/19/20 23:05 Neostigmine Methylsulfate (Neostigmine Methylsulfate) Confirm Administered Dose 5 mg .ROUTE .STK-MED ONE Stop: 09/20/20 00:10 Ondansetron HCl (Zofran) Confirm Administered Dose 4 mg .ROUTE .STK-MED ONE Stop: 09/19/20 23:05 Ondansetron HCl (Zofran) Confirm Administered Dose 4 mg .ROUTE .STK-MED ONE Stop: 09/19/20 23:06 Propofol (Diprivan 20 Ml) Confirm Administered Dose 400 mg .ROUTE .STK-MED ONE Stop: 09/19/20 23:05 Rocuronium Iliamna (Zemuron) Confirm Administered Dose 50 mg .ROUTE .STK-MED ONE Stop: 09/19/20 23:05
== END 2020-09-20 13:15 | disposition home or self-care (01) ==
LOC: JD.ED 17:37 → JD.SDS 22:51 → JD.OB 09-20 01:45 → JD.SDS 09-20 13:15
PROVIDERS: ATTEND Obstetrics & Gynecology
DX: O00.102 Left tubal pregnancy without intrauterine pregnancy (principal); F17.210 Nicotine dependence, cigarettes, uncomplicated; K66.1 Hemoperitoneum; Z01.812 Encounter for preprocedural laboratory examination; Z20.828 Contact with and (suspected) exposure to other viral communicable diseases
CPT/HCPCS: 36415; 59151; 74019; 74177; 76817; 80053; 83690; 84702; 84703; 85025; 86140; 86850; 86900; 86901; 87635; 96360; 96361; 99285; A9270; J0690; J1100; J1885; J2001; J2250; J2405; J2704; J2710; J3010; J3490; J7120; Q9967; 00840; U0002

== ENCOUNTER 2021-02-02 22:22 | Emergency (ER) | payer BC, OTHER ==
[2021-02-02] MEDS ORDERED: Lactated Ringers 1,000 ML IV ONE (22:45)
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
--- NOTE | 2021-02-03 08:47 | CT ---
CT thoracic spine Technique: Multiple axial sections were obtained through the thoracic spine. Reconstructed coronal and sagittal images were obtained. Findings: Slight scoliosis is noted. Vertebral body heights and disc spaces are maintained. No acute fracture or subluxation is seen. No central canal stenosis or neural foraminal stenosis is seen. Impression: 1. Slight scoliosis. 2. Nothing acute is seen on CT study of the thoracic spine. Diagnostic code #2 I agree with preliminary report from [facility], finalized on 02/03/21, 1:23 AM CDT
--- NOTE | 2021-02-03 08:47 | CT ---
CT facial bones Technique: Multiple axial sections through the facial bones were obtained. Reconstructed coronal and sagittal images were obtained. Comparison: No previous facial bone exam is available. Findings: Paranasal sinuses and visualized mastoid sinuses show nothing acute. Kayla bullosa are noted within both middle nasal turbinate. No discrete facial bone fracture is appreciated. Right and left globes are symmetric. No retrobulbar abnormality is appreciated. Impression: 1. Nothing acute is appreciated on CT study of the facial bones. Diagnostic code #1 I agree with preliminary report from [facility], finalized on 02/03/21, 1:39 AM CDT
--- NOTE | 2021-02-03 09:15 | CT ---
Head CT Technique: Multiple axial sections through the brain. Intravenous contrast was not utilized. Reconstructed coronal and sagittal images were obtained. Comparison: No prior studies available. Findings: Ventricles along with basal cisterns and sulci over the convexities are within normal limits for the patient's age. No abnormal parenchymal densities are seen. No evidence of intracranial hemorrhage. No midline shift or mass-effect seen. Bone window settings were reviewed. Visualized paranasal sinuses and mastoid sinuses show nothing. No acute osseous finding is seen. Impression: 1. Nothing acute is appreciated on noncontrast head CT exam. Diagnostic code #1 I agree with preliminary report from [facility], finalized on 02/03/21, 1:40 AM CDT
--- NOTE | 2021-02-03 10:36 | CT ---
CT cervical spine Technique: Multiple axial sections were obtained from above C1 inferiorly to the bottom of T2. Reconstructed coronal and sagittal images were obtained. Comparison: No prior cervical spine imaging is available. Findings: Vertebral body heights and disc spaces are maintained. No bony central or bony neural foraminal stenosis is seen. No acute fracture or other bony abnormality is appreciated. Impression: 1. Nothing acute is appreciated on CT study of the cervical spine. Diagnostic code #1 I agree with preliminary report from [facility], finalized on 02/03/21, 1:42 AM CDT
--- NOTE | 2021-02-03 10:46 | CT ---
CT chest Technique: Multiple axial sections through the chest were obtained. Intravenous contrast was utilized. Reconstructed coronal and sagittal images were obtained. Findings: Mediastinum and hilar regions show no adenopathy or mass. No pericardial thickening is seen. No axillary adenopathy is noted. Lungs are clear with no acute parenchymal change. No pleural effusions are seen. Bone window settings were reviewed which show no acute osseous findings. Impression: 1. Nothing acute is seen on CT study of the chest. Diagnostic code #1 I agree with preliminary report from [facility], finalized on 02/03/21, 1:[address] abdomen and pelvis Technique: Multiple axial sections were obtained from above the dome of the diaphragm inferiorly through the pubic symphysis. Intravenous contrast was utilized. Delayed images were also obtained through the bladder. Reconstructed coronal and sagittal images were obtained. Findings: Liver contains no focal parenchymal abnormality. Spleen size is normal. Small low density finding is noted within the upper spleen measuring about 7 mm which is most likely incidental. Pancreas is within normal limits. Adrenal glands show no nodule. Kidneys show symmetric contrast enhancement with no hydronephrosis or mass. Gallbladder contains no calcified gallstones. Abdominal aorta shows no aneurysm. No retroperitoneal adenopathy or mesenteric abnormalities are seen. No pelvic mass or adenopathy is appreciated. Minimal fluid is seen within the pelvis which is felt to be physiologic. Delayed images show contrast within the distal ureters and within the bladder. Appendix is not visualized. Bone window settings were reviewed which show no acute osseous finding. Impression: 1. Small amount of fluid within the pelvis which is felt to be physiologic. 2. Nothing acute is appreciated on CT study of the abdomen and pelvis. Diagnostic code #2 I agree with preliminary report from [facility], finalized on 02/03/21, 1:37 AM CDT
== END 2021-02-03 01:21 | disposition home or self-care (01) ==
LOC: JD.ED 22:22
DX: M54.6 Pain in thoracic spine (principal); Z72.0 Tobacco use
CPT/HCPCS: 36415; 70450; 70486; 71260; 72125; 72128; 74177; 80053; 80307; 82150; 84703; 85025; 85610; 86850; 86900; 86901; 99285; J7120; 99283

== ENCOUNTER 2022-01-08 20:25 | Emergency (ER) | payer OTHER, BC ==
[2022-01-08] MEDS ORDERED: Ondansetron 4 MG/2 ML SDV IVPUSH ONE (20:46)
[2022-01-08] MEDS ORDERED: Sodium Chloride 0.9% 10 ML Syringe FLUSH PRN (20:46)
[2022-01-08] MEDS ORDERED: Sodium Chloride 0.9% 1,000 ML IV SCH (21:00)
== END 2022-01-08 23:53 | disposition left against medical advice (07) ==
LOC: JD.ED 20:25
DX: O99.891 Other specified diseases and conditions complicating pregnancy (principal); R10.2 Pelvic and perineal pain; R10.30 Lower abdominal pain, unspecified; Z86.16 Personal history of COVID-19; Z72.0 Tobacco use; Z3A.00 Weeks of gestation of pregnancy not specified
CPT/HCPCS: 36415; 76705; 76817; 80053; 81001; 81025; 83690; 84702; 85025; 86140; 86900; 86901; 96374; 99284; J2405; J7030; 99285; J3490

== ENCOUNTER 2022-10-06 07:13 | Inpatient (IN) | payer BC ==
[~2022-10-06 07:13] MED LIST: Bupivacaine 0.25% 10 ML SDV ONE
[2022-10-06] MEDS ORDERED: Misoprostol 25 MCG (1/4 of 100 MCG) Tab VAG PRN (09:22)
[2022-10-06] MEDS ORDERED: Sodium Chloride 0.9% 10 ML Syringe FLUSH PRN (09:22)
[2022-10-06] MEDS ORDERED: Acetaminophen 325 MG Tab PO PRN (09:22)
[2022-10-06] MEDS ORDERED: Oxytocin/Lactated Ringers 10 UNIT/1,000 ML BAG IV SCH (09:30)
[2022-10-06] MEDS ORDERED: Misoprostol 25 MCG (1/4 of 100 MCG) Tab VAG ONE (10:00)
[2022-10-06] MEDS ORDERED: Bupivacaine/fentaNYL/NS 100 ML Bag EPIDUR PRN (12:26)
[2022-10-06] MEDS ORDERED: diphenhydrAMINE 50 MG/ML SDV IVPUSH PRN (12:26)
[2022-10-06] MEDS ORDERED: ePHEDrine 50 MG/ML SDV IVPUSH PRN (12:26)
[2022-10-06] MEDS ORDERED: fentaNYL 100 MCG/2 ML SDV EPIDUR PRN (12:26)
[2022-10-06] MEDS ORDERED: Lidocaine 1% 50 ML MDV INJECT SCH (23:45)
[2022-10-07] MEDS: Lactated Ringers 1,000 ML IV SCH ×5 (00:55→07:46)
[2022-10-07] MEDS ORDERED: Citric Acid/Sodium Citrate Solution 30 ML Cup PO ONE (07:58)
[2022-10-07] MEDS ORDERED: Metoclopramide 10 MG/2 ML SDV IVPUSH ONE (07:58)
[2022-10-07] MEDS ORDERED: Sodium Chloride 0.9% 10 ML Syringe FLUSH PRN (07:58)
[2022-10-07] MEDS ORDERED: Lactated Ringers 1,000 ML IV SCH (08:00)
[2022-10-07] MEDS ORDERED: ceFAZolin 2 GM Vial ONE (08:17)
[2022-10-07] MEDS ORDERED: Ketorolac 30 MG/ML SDV ONE (08:17)
[2022-10-07] MEDS ORDERED: Ondansetron 4 MG/2 ML SDV ONE (08:17)
[2022-10-07] MEDS ORDERED: Morphine PF 10 MG/10 ML SDV ONE (08:17)
[2022-10-07] MEDS ORDERED: Lactated Ringers 2,000 ML ONE (08:17)
[2022-10-07] MEDS ORDERED: Lidocaine 2% with EPINEPHrine 1:200,000 20 ML SDV ONE (08:18)
[2022-10-07] MEDS ORDERED: Sodium Bicarbonate 8.4% 50 MEQ/50 ML SDV ONE (08:18)
[2022-10-07] MEDS ORDERED: Bupivacaine 0.5% 30 ML SDV ONE (08:21)
[2022-10-07] MEDS ORDERED: diphenhydrAMINE 50 MG/ML SDV IVPUSH PRN ×2 (08:50→12:30)
[2022-10-07] MEDS ORDERED: fentaNYL 100 MCG/2 ML SDV IVPUSH PRN (08:50)
[2022-10-07] MEDS ORDERED: Ondansetron 4 MG/2 ML SDV IVPUSH PRN (08:50)
[2022-10-07] MEDS ORDERED: Meperidine 50 MG/ML Vial IVPUSH PRN (08:50)
[2022-10-07] MEDS ORDERED: Oxytocin 10 Units/1 ML SDV ONE (08:51)
[2022-10-07] MEDS ORDERED: Sodium Chloride 0.9% 10 ML Syringe FLUSH SCH (09:00)
[2022-10-07] MEDS ORDERED: Meperidine 50 MG/ML Vial ONE (09:06)
[2022-10-07] MEDS ORDERED: fentaNYL 100 MCG/2 ML SDV ONE (09:27)
[2022-10-07] MEDS ORDERED: Naloxone 0.4 MG/ML SDV IVPUSH PRN (12:30)
[2022-10-07] MEDS ORDERED: ePHEDrine 50 MG/ML SDV IVPUSH PRN (12:30)
[2022-10-07] MEDS ORDERED: Dextrose 5%-Lactated Ringers 1,000 ML IV SCH (12:30)
[2022-10-07] MEDS: Ibuprofen 600 MG Tab PO PRN ×2 (15:44→22:29)
[2022-10-07] MEDS: Acetaminophen/oxyCODONE 325-5 MG Tab PO PRN ×2 (15:45→22:28)
[2022-10-08] MEDS: Acetaminophen/oxyCODONE 325-5 MG Tab PO PRN ×5 (06:32→22:21)
[2022-10-08] MEDS: Ibuprofen 600 MG Tab PO PRN ×3 (06:33→22:19)
[2022-10-08] MEDS: Docusate Sodium 100 MG Cap PO PRN ×2 (06:33→22:19)
[2022-10-08 07:03] LABS: CORONAVIRUS COVID-19 NAA NEGATIVE (NEGATIVE)
[2022-10-08] MEDS: Polyethylene Glycol 3350 Powder 17 GM Packet PO PRN (11:21)
[2022-10-08] MEDS: Simethicone 80 MG Tab.Chew PO SCH ×2 (17:54→22:19)
[2022-10-08] MEDS ORDERED: Iopamidol 755 Mg/ML 100 ML Bottle IVPUSH ONE (22:52)
[2022-10-09] MEDS: Ibuprofen 600 MG Tab PO PRN (03:09)
[2022-10-09] MEDS: Acetaminophen/oxyCODONE 325-5 MG Tab PO PRN ×3 (03:10→13:16)
[2022-10-09] MEDS: Simethicone 80 MG Tab.Chew PO SCH (03:12)
[2022-10-09] MEDS: Polyethylene Glycol 3350 Powder 17 GM Packet PO PRN (03:13)
[2022-10-09] MEDS: Docusate Sodium 100 MG Cap PO PRN (07:56)
== END 2022-10-09 13:37 | disposition home or self-care (01) | DRG 540 ==
LOC: JD.OB 07:13 → OBSVTOIN 07:13 → JD.OB 10-07 09:39
PROVIDERS: ADMIT Obstetrics & Gynecology; ATTEND Obstetrics & Gynecology
PROC: 10D00Z1 Extraction of Products of Conception, Low, Open Approach (ICD-10-PCS; principal; 2022-10-07)
PROC: 3E0P7VZ Introduction of Hormone into Female Reproductive, Via Natural or Artificial Opening (ICD-10-PCS; 2022-10-07)
PROC: 3E0R3BZ Introduction of Anesthetic Agent into Spinal Canal, Percutaneous Approach (ICD-10-PCS; 2022-10-07)
PROC: 00HU33Z Insertion of Infusion Device into Spinal Canal, Percutaneous Approach (ICD-10-PCS; 2022-10-07)
DX: O48.0 Post-term pregnancy (principal); Z37.0 Single live birth; O99.214 Obesity complicating childbirth; O62.1 Secondary uterine inertia; O77.0 Labor and delivery complicated by meconium in amniotic fluid; O72.1 Other immediate postpartum hemorrhage; Z20.822 Contact with and (suspected) exposure to COVID-19; Z86.16 Personal history of COVID-19; Z3A.42 42 weeks gestation of pregnancy; Z87.891 Personal history of nicotine dependence
CPT/HCPCS: 0241U; 36415; 51701; 51702; 59025; 71275; 71275-26; 80053; 83605; 85025; 85379; 86850; 86900; 86901; 94760; 94762; A9270-GY; J0690; J1885; J2175; J2274; J2405; J2590; J2765; J3010; J3490; J7120; J7121

== ENCOUNTER 2022-10-14 10:23 | Emergency (ER) | payer BC ==
[2022-10-14] MEDS ORDERED: HYDROmorphone 1 MG/ML Syringe IVPUSH STA (11:18)
[2022-10-14] MEDS ORDERED: Sodium Chloride 0.9% 10 ML Syringe FLUSH PRN ×2 (11:18→12:19)
[2022-10-14] MEDS ORDERED: Ondansetron 4 MG/2 ML SDV IVPUSH ONE (11:18)
[2022-10-14] MEDS ORDERED: Sodium Chloride 0.9% 1,000 ML IV SCH (11:30)
[2022-10-14] MEDS ORDERED: Iopamidol 612 MG/ML 100 ML Bottle IVPUSH ONE (12:19)
== END 2022-10-14 12:54 | disposition home or self-care (01) ==
LOC: JD.ED 10:23
DX: O90.89 Other complications of the puerperium, not elsewhere classified (principal); R33.9 Retention of urine, unspecified; G89.18 Other acute postprocedural pain; R10.30 Lower abdominal pain, unspecified; O99.215 Obesity complicating the puerperium; E66.9 Obesity, unspecified; Z68.32 Body mass index [BMI] 32.0-32.9, adult; Z86.16 Personal history of COVID-19; Z98.890 Other specified postprocedural states
CPT/HCPCS: 36415; 80053; 81001; 83690; 85025; 86140; 87086; 96361; 96374; 96375; 99284; J1170; J2405; J3490; J7030